=== PATIENT | female | born 1985 | race Caucasian/White ===

== ENCOUNTER 2025-02-08 14:56 | Outpatient (REF) | payer BC, SELFPAY ==
[2025-02-11 14:10] LABS: Age Gdln ACOG Testing Note (.); HPV Aptima Negative (Negative); IGP, Aptima HPV, rfx 16/18,45 Note (.)
== END 2025-02-08 14:57 | disposition home or self-care (01) ==
LOC: LAB 14:56
PROVIDERS: PCP Internal Medicine; Visit Provider Physician Assistant
DX: Z01.419 Encounter for gynecological examination (general) (routine) without abnormal findings (principal)
CPT/HCPCS: 87624; 88175

== ENCOUNTER 2025-02-21 09:00 | Outpatient (OUT) | payer BC, SELFPAY ==
--- NOTE | 2025-02-21 09:12 | MM_ITS ---
Patient Name: MOOKIE REMY MR#: [id number] : 1985 Exam Date: 02/21/2025 Ordering Doctor: DR ANDREA SKINNER RADIOLOGY REPORT PROCEDURE: MM TOMOSYNTHESIS SCREENING BI COMPARISON: None. INDICATIONS: Screening Calculator Name NCI Breast Cancer Risk Assessment Tool 5 Year Breast Cancer Risk Not Reported. Lifetime Breast Cancer Risk Not Reported. Personal Breast Cancer No Personal Ovarian Cancer No Treatments None Family Cancers None LOCATION: [facility] BREAST COMPOSITION: There are scattered areas of fibroglandular density. FINDINGS: DIAGNOSTIC CATEGORY 1--NEGATIVE. RIGHT BREAST: No significant suspicious finding. LEFT BREAST: No significant suspicious finding. RECOMMENDATIONS: ROUTINE MAMMOGRAM AND CLINICAL EVALUATION IN 12 MONTHS. PLEASE NOTE: A NORMAL MAMMOGRAM DOES NOT EXCLUDE THE POSSIBILITY OF BREAST CANCER. A CLINICALLY SUSPICIOUS PALPABLE LUMP SHOULD BE BIOPSIED. Dictated by: Stanislaw Cordero DO on 02/21/2025 at 16:10 Approved by: Stanislaw Cordero DO on 02/21/2025 at 16:12
--- OUTSIDE RECORDS SUMMARY | 2025-02-21 09:15 | XMS_ITS | CCD ---
Author Organization [facility] Care Team Providers Care Massage Operator Name Role Phone JHONATAN, MARIA DEL CARMEN Unavailable Unavailable JHONATAN, MARIA DEL CARMEN Unavailable Unavailable JHONATAN, MARIA DEL CARMEN Unavailable Unavailable CHRISTEN REGAN A Unavailable Unavailable JHONATAN, MARIA DEL CARMEN Unavailable Unavailable PERNI, TARAH C Unavailable Unavailable JHONATAN, MARIA DEL CARMEN Unavailable Unavailable JHONATAN, MARIA DEL CARMEN Unavailable Unavailable JHONATAN, MARIA DEL CARMEN Unavailable Unavailable JHONATAN, MARIA DEL CARMEN Unavailable Unavailable RADHA, OLIVIA R Unavailable Unavailable JHONATAN, MARIA DEL CARMEN Unavailable Unavailable JHONATAN, MARIA DEL CARMEN Unavailable Unavailable JHONATAN, MARIA DEL CARMEN Unavailable Unavailable JHONATAN, MARIA DEL CARMEN Unavailable Unavailable BAUGH CHARO (LINING BASTER) Unavailable Unavailable JHONATAN, MARIA DEL CARMEN Unavailable Unavailable ODOHERTY, DEX L Unavailable Unavailable JHONATAN, MARIA DEL CARMEN Unavailable Unavailable ODOHERTY, DEX L Unavailable Unavailable JHONATAN, MARIA DEL CARMEN Unavailable Unavailable Kristina LAWLER Unavailable Unavailable JHONATAN, MARIA DEL CARMEN Unavailable Unavailable JHONATAN, MARIA DEL CARMEN Unavailable Unavailable JHONATAN, MARIA DEL CARMEN Unavailable Unavailable BAUGH CHARO (LINING BASTER) Unavailable Unavailable BAUGH CHARO (LINING BASTER) Unavailable Unavailable JHONATAN, MARIA DEL CARMEN Unavailable Unavailable JHONATAN, MARIA DEL CARMEN Unavailable Unavailable JHONATAN, MARIA DEL CARMEN Unavailable Unavailable PETAR TEJADA Primary Care Unavailable ANAND MORENO Admitting Unavailable ANAND MORENO Attending Unavailable ANAND MORENO Attending Unavailable JOSAFAT BOONE Consulting Unavailable ANAND MORENO Admitting Unavailable ANAND MORENO Consulting Unavailable Petar Tejada MD Primary Care Provider ANITRA BURDEN Attending Unavailable RACHEL ROWE Attending Unavailable Problems Active Problems Problem Classification Problem Date Documented Date Episodic/Chronic Cardiac dysrhythmias (6 sources) Cardiac arrhythmia; Translations: [Cardiac arrhythmia, unspecified] Onset: 02-07-2009 12-21-2024 Chronic Mood disorders (8 sources) Mild depression; Translations: [Mild depression (CMS/HCC)] Onset: 12-21-2024 12-21-2024 Chronic Other complications of (2 sources) Obesity complicating , unspecified trimester; Translations: [Obesity complicating , first trimester] Onset: 10-05-2017 Chronic Other complications of (2 sources) Supervision of elderly multigravida, third trimester; Translations: [Supervision of elderly multigravida, first trimester] Onset: 10-08-2017 Other connective tissue disease (4 sources) Achilles tendinitis, right leg; Translations: [ACHILLES TENDINITIS RIGHT LEG] Onset: 09-19-2020 Episodic Other connective tissue disease (4 sources) Pain in right foot; Translations: [PAIN IN RIGHT FOOT] Onset: 09-12-2020 Episodic Other nutritional; endocrine; and metabolic disorders (8 sources) Body mass index 40+ - severely obese; Translations: [Morbid (severe) obesity due to excess calories] Onset: 12-21-2024 12-21-2024 Chronic Other nutritional; endocrine; and metabolic disorders (2 sources) Weight increased; Translations: [Abnormal weight gain] 12-21-2024 Episodic Other screening for suspected conditions (not mental disorders or infectious disease) (8 sources) Patient encounter status; Translations: [Encounter for screening mammogram for malignant neoplasm of breast] 12-21-2024 Episodic Other skin disorders (2 sources) Xeroderma; Translations: [Xerosis cutis] 12-21-2024 Episodic Prolonged (1 source) Post-term ; Translations: [Post-term ] Onset: 04-13-2018 Episodic Residual codes; unclassified (6 sources) Obstructive sleep apnea syndrome; Translations: [Obstructive sleep apnea (adult) (pediatric)] Onset: 02-07-2009 12-21-2024 Chronic Residual codes; unclassified (2 sources) FH: Thyroid disorder; Translations: [Family history of other endocrine, nutritional and metabolic diseases] 12-21-2024 Episodic Unclassified (2 sources) 40 weeks gestation of ; Translations: [13 weeks gestation of ] Onset: 10-08-2017 Unclassified (2 sources) Unknown / UNK(Unknown) Onset: 10-05-2017 Unclassified (1 source) Other specified postprocedural states; Translations: [Other specified postprocedural states] Onset: 10-08-2017 Unclassified (1 source) Encounter for screening for nuchal translucency; Translations: [Encounter for screening for nuchal translucency] Onset: 10-08-2017 Past or Other Problems Problem Classification Problem Date Documented Da te Episodic/Chronic Other complications of (3 sources) Supervision of with other poor reproductive or obstetric history, unspecified trimester; Translations: [Bariatric surgery status complicating , first trimester] Onset: 10-05-2017 Episodic Other gastrointestinal disorders (8 sources) History of bypass of stomach; Translations: [Bariatric surgery status] Onset: 01-24-2016 12-21-2024 Episodic Other nutritional; endocrine; and metabolic disorders (6 sources) Body mass index 30+ - obesity; Translations: [Body mass index (BMI) 39.0-39.9, adult] Onset: 01-24-2016 Resolved: 12-21-2024 12-21-2024 Chronic Unclassified (2 sources) Cancer cervix screening status 12-21-2024 Results Test Name Value Interpretation Reference Range Facility IGP,APTIMA HPV,AGE GDLNon AGE GDLN ACOG TESTING Note . [facility] Comment on above: TESTS RESULT FLAG UNITS REF RANGE LAB Clinician Provided Cytology Information Source.............Cervix;Endocervix No. of containers..01 ThinPrep Vial Age Algo ACOG Amanda... 30-65 01 FLAG LEGEND: L-Low Normal,H-High Normal,LL-Alert Low,HH-Alert High <-Panic Low,>-Panic High,A-Abnormal,AA-Critical Abnormal Performed at: 01 =[address] [phone] Mehreen Slater MD, HPV APTIMA Negative Negative [facility] Comment on above: This nucleic acid amplification test det ects fourteen high- risk HPV types (16,18,31,33,35,39,45,51,52,56,58,59,66,68) without differentiation. Performed at: =[facility], [place] [id number] Chicken And Fish Butcher: Mehreen Slater MD, Phone: [phone] Performed at: [facility] [address] [place] [id number] [employer] Butcher: Gerald Montgomery MD, Phone: [phone] IGP, APTIMA HPV, RFX 16/18,45 Note . [facility] Comment on above: TESTS RESULT FLAG UNITS REF RANGE LAB DIAGNOSIS: 02 NEGATIVE FOR INTRAEPITHELIAL LESION OR MALIGNANCY. Specimen adequacy: 02 Satisfactory for evaluation. Endocervical and/or squamous metaplastic cells (endocervical component) are present. Performed by: 02 Fernando Talley, Driver Utility Worker (ASCP) . 02 Note: Note 03 The Pap smear is a screening test designed to aid in the detection of premalignant and malignant conditions of the uterine cervix. It is not a diagnostic procedure and should not be used as the sole means of detecting cervical cancer. Both false-positive and false-negative reports do occur. Test Methodology: Note 03 This liquid based ThinPrep(R) pap test was screened with the use of an image guided system. HPV Genotype Reflex Note 02 Criteria not met, HPV Genotype not performed. FLAG LEGEND: L-Low Normal,H-High Normal,LL-Alert Low,HH-Alert High <-Panic Low,>-Panic High,A-Abnormal,AA-Critical Abnormal Performed at: 02 [facility] [id number] [place] [phone] Gerald Montgomery MD, 03 WB [facility] [address] [phone] Mehreen Slater MD, CERVIX ENDOCERVIX [facility] HCG ( test) Ql (U)o n 02-08-2025 Interpretation and review of laboratory results Normal [facility] Preg Test, Ur Negative Negative [facility] hospital Urinalysis macro (dipstick) panel (U)on 02-08-2025 Bilirubin, UA Negative Negative - 4(70) +++ mg/dL [facility] Blood, UA Negative Negative - 50 Harsh/mcL [facility] Clarity, UA Clear [facility] Color, UA Yellow [facility] Glucose, UA Negative Negative - 1999(110) ++++ mg/dL [facility] Interpretation and review of laboratory results Normal [facility] Ketones, UA Negative Negative - 160(16) ++++ mg/dL [facility] Leukocytes, UA Negative Negative - 500+++ Jayda/mcL [facility] Nitrite, UA Negative Negative - Positive [facility] pH, UA 7 5 - 9 [facility] Protein, UA Negative Negative - 1999(20) ++++ mg/dL [facility] Spec Grav, UA 1.015 1 - 1.03 [facility] Urobilinogen, UA 0.2 0.2 - 12 mg/dL Critical [facility] hospital CBC (INCLUDES DIFF/PLT)on Basophils (Bld) [#/Vol] 0.043 10*3/uL Normal 0-200 [facility] Comment on above: Performed By: #### 6399, 7600, 13744 ### # [facility] [place] [address] Assistant Chief Nursing Officer: Garrett Corea MD Basophils/100 WBC (Bld) 0.6 % Normal [facility] Comment on above: Performed By: #### 6399, 7600, 92449 ### # [facility] [place] [address] Assistant Chief Nursing Officer: Garrett Corea MD Eosinophils (Bld) [#/Vol] 0.101 10*3/uL Normal 15-500 [facility] Comment on above: Performed By: #### 6399, 7600, 40912 ### # [facility] [place] [address] Assistant Chief Nursing Officer: Garrett Corea MD Eosinophils/100 WBC (Bld) 1.4 % Normal [facility] Comment on above: Performed By: #### 6399, 7600, 45177 ### # [facility] [place] [address] Assistant Chief Nursing Officer: Garrett Corea MD Erythrocyte distribution width (RBC) [Ratio] 12.5 % Normal 11.0-15.0 [facility] Comment on above: Performed By: #### 6399, 7600, 69212 ### # [facility] [place] [address] Assistant Chief Nursing Officer: Garrett Corea MD Hematocrit (Bld) [Volume fraction] 43.2 % Normal 35.0-45.0 [facility] Comment on above: Performed By: #### 6399, 7600, 60627 ### # [facility] [place] [address] Assistant Chief Nursing Officer: Garrett Corea MD Hemoglobin (Bld) [Mass/Vol] 13.9 g/dL Normal 11.7-15.5 [facility] Comment on above: Performed By: #### 6399, 7600, 70533 ### # [facility] of [address], [address] [place] [address] Assistant Chief Nursing Officer: Garrett Croea MD Lymphocytes (Bld) [#/Vol] 2.426 10*3/uL Normal 850-3900 [facility] Comment on above: Performed By: #### 6399, 7600, 29350 ### # [facility] of [address], [address] [place] [address] Assistant Chief Nursing Officer: Garrett Corea MD Lymphocytes/100 WBC (Bld) 33.7 % Normal [facility] Comment on above: Performed By: #### 6399, 7600, 27362 ### # [facility] [place] [address] Assistant Chief Nursing Officer: Garrett Corea MD MCH (RBC) [Entitic mass] 27.5 pg Normal 27.0-33.0 [facility] Comment on above: Performed By: #### 6399, 7600, 63064 ### # [facility] [place] [address] Assistant Chief Nursing Officer: Garrett Corea MD MCHC (RBC) [Mass/Vol] 32.2 g/dL Normal 32.0-36.0 [facility] Comment on above: Result Comment: For adults, a slight dec rease in the calculated MCHC value (in the range of 30 to 32 g/dL) is most likely not clinically significant; however, it should be interpreted with caution in correlation with other red cell parameters and the patient's clinical condition. Performed By: #### 6 399, 7600, 44063 #### [facility] [place] [address] Assistant Chief Nursing Officer: Garrett Corea MD MCV (RBC) [Entitic vol] 85.5 fL Normal 80.0-100.0 [facility] Comment on above: Performed By: #### 6399, 7600, 66302 ### # [facility] of [place] [address] [place] [address] Assistant Chief Nursing Officer: Garrett Corea MD Monocytes (Bld) [#/Vol] 0.475 10*3/uL Normal 200-950 [facility] Comment on above: Performed By: #### 6399, 7600, 72200 ### # [facility] of [address], [address] [place] [address] Assistant Chief Nursing Officer: Garrett Corea MD Monocytes/100 WBC (Bld) 6.6 % Normal [facility] Comment on above: Performed By: #### 6399, 7600, 04513 ### # [facility] [place] [address] Assistant Chief Nursing Officer: Garrett Corea MD Neutrophils (Bld) [#/Vol] 4.154 10*3/uL Normal 1300-1818 [facility] Comment on above: Performed By: #### 6399, 7600, 96853 ### # [facility] of [address], [address] [place] [address] Assistant Chief Nursing Officer: Garrett Corea MD Neutrophils/100 WBC (Bld) 57.7 % Normal [facility] Comment on above: Performed By: #### 6399, 7600, 25241 ### # [facility] [place] [address] Assistant Chief Nursing Officer: Garrett Corea MD Platelet mean volume (Bld) [Entitic vol] 10.9 fL Normal 7.5-12.5 [facility] Comment on above: Performed By: #### 6399, 7600, 61383 ### # [facility] of [address], [address] [place] [address] Assistant Chief Nursing Officer: Garrett Corea MD Platelets (Bld) [#/Vol] 262 10*3/uL Normal 140-400 [facility] Comment on above: Performed By: #### 6399, 7600, 72606 ### # [facility] of [address], [address] [place] [address] Assistant Chief Nursing Officer: Garrett Corea MD RBC (Bld) [#/Vol] 5.05 10*6/uL Normal 3.80-5.10 [facility] Comment on above: Performed By: #### 6399, 7600, 57111 ### # [facility] [place] [address] Assistant Chief Nursing Officer: Garrett Corea MD WBC (Bld) [#/Vol] 7.2 10*3/uL Normal 3.8-10.8 [facility] Comment on above: Performed By: #### 6399, 7600, 21226 ### # [facility] [place] [address] Assistant Chief Nursing Officer: Garrett Corea MD [facility] 12-22-2024 Albumin [Mass/Vol] 3.9 g/dL Normal 3.6-5.1 [facility] Comment on above: Performed By: #### 6399, 7600, 71136 ### # [facility] [place] [address] Assistant Chief Nursing Officer: Garrett Corea MD Albumin/Globulin [Mass ratio] 1.3 {ratio} Normal 1.0-2.5 [facility] Comment on above: Performed By: #### 6399, 7600, 52725 ### # [facility] [place] [address] Assistant Chief Nursing Officer: Garrett Corea MD ALP [Catalytic activity/Vol] 52 U/L Normal 31-125 [facility] Comment on above: Performed By: #### 6399, 7600, 16620 ### # [facility] [place] [address] Assistant Chief Nursing Officer: Garrett Corea MD ALT [Catalytic activity/Vol] 19 U/L Normal 6-29 [facility] Comment on above: Performed By: #### 6399, 7600, 58425 ### # [facility] [place] [address] Assistant Chief Nursing Officer: Garrett Corea MD AST [Catalytic activity/Vol] 18 U/L Normal 10-30 [facility] Comment on above: Performed By: #### 6399, 7600, 77671 ### # [facility] of [address], [address] [place] [address] Assistant Chief Nursing Officer: Garrett Corea MD Bilirubin [Mass/Vol] 1.0 mg/dL Normal 0.2-1.2 [facility] Comment on above: Performed By: #### 6399, 7600, 91559 ### # [facility] of [address], [address] [place] [address] Assistant Chief Nursing Officer: Garrett Corea MD BUN/CREATININE RATIO SEE NOTE: Normal 6-22 [facility] Comment on above: Result Comment: Not Reported: BUN and Cr eatinine are within reference range. Performed By: #### 6 399, 7600, 36339 #### [facility] of [address], [address] [place] [address] Assistant Chief Nursing Officer: Garrett Corea MD Calcium [Mass/Vol] 9.0 mg/dL Normal 8.6-10.2 [facility] Comment on above: Performed By: #### 6399, 7600, 77537 ### # [facility] [place] [address] Assistant Chief Nursing Officer: Garrett Corea MD Chloride [Moles/Vol] 105 mmol/L Normal 98-110 [facility] Comment on above: Performed By: #### 6399, 7600, 73335 ### # [facility] [place] [address] Assistant Chief Nursing Officer: Garrett Corea MD CO2 [Moles/Vol] 28 mmol/L Normal 20-32 [facility] Comment on above: Performed By: #### 6399, 7600, 94972 ### # [facility] [place] [address] Assistant Chief Nursing Officer: Garrett Corea MD Creatinine [Mass/Vol] 0.79 mg/dL Normal 0.50-0.99 [facility] Comment on above: Performed By: #### 6399, 7600, 45674 ### # [facility] [place] [address] Assistant Chief Nursing Officer: Garrett Corea MD GFR/1.73 sq M.predicted among non-blacks MDRD (S/P/Bld) [Vol rate/Area] 96 mL/min/{1.73_m2} Normal > OR = 60 [facility] Comment on above: Performed By: #### 6399, 7600, 52704 ### # [facility] [place] [address] Assistant Chief Nursing Officer: Garrett Corea MD Globulin (S) [Mass/Vol] 2.9 g/dL Normal 1.9-3.7 [facility] Comment on above: Performed By: #### 6399, 7600, 42919 ### # [facility] [place] [address] Assistant Chief Nursing Officer: Garrett Corea MD Glucose [Mass/Vol] 86 mg/dL Normal 65-99 [facility] Comment on above: Result Comment: Fasting reference interval Performed By: #### 6 399, 7600, 84836 #### [facility] [place] [address] Assistant Chief Nursing Officer: Garrett oCrea MD Potassium [Moles/Vol] 4.6 mmol/L Normal 3.5-5.3 [facility] Comment on above: Performed By: #### 6399, 7600, 35100 ### # [facility] [place] [address] Assistant Chief Nursing Officer: Garrett Corea MD Protein [Mass/Vol] 6.8 g/dL Normal 6.1-8.1 [facility] Comment on above: Performed By: #### 6399, 7600, 87104 ### # [facility] [place] [address] Assistant Chief Nursing Officer: Garrett Corea MD Sodium [Moles/Vol] 139 mmol/L Normal 135-146 [facility] Comment on above: Performed By: #### 6399, 7600, 12804 ### # [facility] of [address], [address] [place] [address] Assistant Chief Nursing Officer: Garrett Corea MD Urea nitrogen [Mass/Vol] 11 mg/dL Normal 7-25 [facility] Comment on above: Performed By: #### 6399, 7600, 91735 ### # [facility] [address], [address] [place] [address] Assistant Chief Nursing Officer: Garrett Corea MD LIPID PANEL, [facility] 12-10 Cholesterol [Mass/Vol] 166 mg/dL Normal <200 [facility] Comment on above: Order Comment: FASTING:YES FASTING: YES Performed By: #### 6 399, 7600, 23571 #### [facility] [address], [address] [place] [address] Assistant Chief Nursing Officer: Garrett Corea MD Cholesterol in HDL [Mass/Vol] 50 mg/dL Normal > OR = 50 [facility] Comment on above: Order Comment: FASTING:YES FASTING: YES Performed By: #### 6 399, 7600, 09708 #### [facility] [address], [address] [place] [address] Assistant Chief Nursing Officer: Garrett Corea MD Cholesterol in LDL [Mass/Vol] 97 mg/dL Normal [facility] Comment on above: Order Comment: FASTING:YES FASTING: YES Result Comment: Refe rence range: <100 Desirable range <100 mg/dL for primary prevention; <70 mg/dL for patients with CHD or diabetic patients with > or = 2 CHD risk factors. LDL-C is now calculated using the Ta-Rima calculation, which is a validated novel method providing better accuracy than the Friedewald equation in the estimation of LDL-C. Ta LLOYD et al. ELANA. 2013;310(19): 0219-4004 (http://education.[employer].DEQ/faq/GTR664) Performed By: #### 6 399, 7600, 62333 #### [facility] [address], [address] [place] [address] Assistant Chief Nursing Officer: Garrett Corea MD Cholesterol.tota l/Cholesterol in HDL [Mass ratio] 3.3 {ratio} Normal <5.0 [facility] Comment on above: Order Comment: FASTING:YES FASTING: YES Performed By: #### 6 399, 7600, 30146 #### [facility] [place] [address] Assistant Chief Nursing Officer: Garrett Corea MD NON HDL CHOLESTEROL 116 mg/dL (calc) Normal <130 [facility] Comment on above: Order Comment: FASTING:YES FASTING: YES Result Comment: For patients with diabetes plus 1 major ASCVD risk factor, treating to a non-HDL-C goal of <100 mg/dL (LDL-C of <70 mg/dL) is considered a therapeutic option. Performed By: #### 6 399, 7600, 57509 #### [facility] [place] [address] Assistant Chief Nursing Officer: Garrett Corea MD Triglyceride [Mass/Vol] 98 mg/dL Normal <150 [facility] Comment on above: Order Comment: FASTING:YES FASTING: YES Performed By: #### 6 399, 7600, 81580 #### [facility] [address], [address] [place] [address] Assistant Chief Nursing Officer: Garrett Corea MD TSH W/REFLEX TO FT4on 2024 TSH W/REFLEX TO FT4 0.97 mIU/L Normal [facility] Comment on above: Result Comment: Reference Range > or = 20 Years 0.40-4.50 Ranges First trimester 0.26-2.66 Second trimester 0.55-2.73 Third trimester 0.43-2.91 Performed By: #### 6 399, 7600, 05956 #### [facility] [address], [address] [place] [address] Assistant Chief Nursing Officer: Garrett Corea MD XR FOOT RT MIN 3 VIEWSon XR FOOT RT MIN 3 VIEWS PROCEDURE: XR FOOT RT MIN 3 VIEWS HISTORY: Pain in right foot ; lump posterior to right heel, no known injury COMPARISON: None. FINDINGS: BONES:Prominent degenerative enthesophyte at the Achilles tendon insertion into the calcaneus. No fracture, dislocation, bone lesion. Degenerative osteophytes along the anterior articular margin of the tibial plafond. SOFT TISSUES:No visible soft tissue swelling. EFFUSION:None visible. OTHER: Negative. IMPRESSION: 1. Large posterior calcaneal degenerative enthesophyte which may account for the patient's palpable lump. Electronically authenticated by: JOSAFAT BOONE Date: 2020-09-12 11:42 Normal [facility] PROGRESSon 05-18-2018 Protein HNO ID: [id number] thor: Yeyo Livingston: (none)Author Type: PhysicianType: Progress NotesFiled: 05/18/2018 4:29 PMNote Text:This note was created using [facility] [employer].SubjectiveEchlester Leal is a 33 year old female.Review of Systems ObjectiveBP 118/76 Wt 256 lb (116.1 kg) LMP 07/17/2017 ? Yes BMI 38.92 kg/m?Physical Exam Assessment and PlanEcho Km Leal is here for her 6 weeks check following her . She deniesany post- concerns. Lochia lasted approximately 3-4 weeks. She isbreastfeeding, and denies any breast concerns. She has no abdominal orpelvic pains, bowel or bladder concerns, and denies any mood concerns.BP 118/76 Wt 256 lb (116.1 kg) LMP 07/17/2017 ? Yes BMI 38.92 kg/m?Breasts: normal per patientAbdomen: soft, non-tenderBimanual: No cervical motion tenderness, uterus small, freely mobile,non-tenderSpeculum exam: extenal genitalia normal, perineum intact, normalBartholin's glands, no vulvar lesios, no cervical lesions, normaldischargeASSESSMENT/P PARVIZ: 1. Normal post- exam 2. Contraception - IUD - risks/benefits/sideeffects of both the Paragard and Mirena reviewed. Patient is consideringthis option strongly. Written information given as well. Plans condomsuntil IUD placementNicholas Twiari MD Normal [facility] 04-15-2018 CNPN Telephone (FVFCBC) -------NESSA LEAL ([id number]) 1985 FDate Time Provider Department04/15/18 LIDYA HE (RN) FVFCBC During your visit today, we recorded the following information about you:Lidya He RN, RN 04/15/2018 11:27 AM SignedLactation Discharge Follow-Up Phone CallSpoke with Nessa regarding .(s) occur: every 2-3 hour(s)How many minutes is actively nursing at the breast per feedinminutesDoes mom hear swallowing: YesMom pumps: NoInfant takes a supplement: NoInfant has adequate urine output per day: Yes, approximately 3 wet diapers inthe last 24 hoursInfant has adequate stools per day: Yes, approximately 5 stool(s) in the last24 hoursStool descriptor: brownConnie has seen/or will see their primary care provider within the next 2 days:Evens's additional comments: NoneRecommendations:Call Services as needed.Allergies As of Date: 04/15/2018(No Known Allergies)Date Reviewed: 04/13/2018Reviewed by: Mirella Tang (Rn) JULITO Pederson - Fully AssessedReason for Visit: Breast Feeding [1541]Prescriptions as of 04/15/2018 Sig: DOCUSATE SODIUM 100 MG CAPSULE Take 1 capsule by mouth twice* BREAST PUMP Use as directed VITAMIN,CALCIUM,MINE* Take 1 tablet by mouth.Problem List As Of Date 04/15/2018 Noted Resolved Encounter for supervision of normal first pregn*INVALID FOR*07/20/2016 BMI 39.0-39.9,adult [Z68.39] INVALID FOR* More... H/O gastric bypass [Z98.84] INVALID FOR* More... Post term at 41 weeks gestation [O48.*INVALID FOR*09/25/2016 H/O macrosomia in in prior , cu*INVALID FOR* Previous gastric bypass affecting in *INVALID FOR* Obesity complicating , first trimester*INVALID FOR* Post-term , 40-42 weeks of gestation [*INVALID FOR* Elderly multigravida in third trimester [O09.52*INVALID FOR* Encounter for planned induction of labor [Z34.9*INVALID FOR* Status:Closed by LIDYA HE on 04/15/18 [facility] ANES Marcial 04-13-2018 ANES POST HNO ID: [id number] thor: Lilia Driver (Aa)Service: AnesthesiologyAuthor Type: Anesthesia AssistantType: Anesthesia PostOpFiled: 04/13/2018 2:32 PMNote Text:POST ANESTHESIA EVALUATION NOTESERVICE DATE: 04/13/2018SERVICE TIME: 1310DOB: 1985Vitals: 04/12/1815Temp: 36.8 ?C (98.2 ?F) 36.9 ?C (98.4 ?F) 36.8 ?C (98.2 ?F) 36.7 ?C (98.1?F) 04/12/18152BP: 108/60 118/58 100/51 114/69 04/12/1808Pulse: 84 77 63 64 04/12/18152Resp: 18 16 18 18 04/11/1823SpO2: 99% 99% 97% 97%Validated Vital Signs: YesPOST ANES STATUS: No apparent anesthetic complications. The patient isappropriately hydrated with stable respiratory and cardiovascular status.Patient has safe and adequate airway control. The patient has appropriatepain relief and no significant post operative nausea or vomiting. Thepatient has achieved baseline mental status.Further assessment by Anesthesia Service: NoneOther Remarks:SIGNATURE: ALEX Eugene PATIENT NAME: Nessa LealDATE: April 13, 2018 : 2:31 PM PAGER/CONTACT #: [facility] CASE MGT INIT ASSESon 2017 CASE MGT INIT PETER HNO ID: [id number]: Maricruz Grullon (Sw): Social WorkAuthor Type: Social WorkerType: Care Mgt Initial AssessmentFiled: 04/13/2018 2:21 PMNote Text:CARE MANAGEMENT: ASSESSMENT AND DISCHARGE PLANSERVICE DATE: 04/13/2018SERVICE TIME: 11:30 AMPRIMOUNTAIN VISTA MEDICAL CENTERY CARE PHYSICIAN:Petar Tejada II, MDPhone: ORZLEKCVR STATUS: InpatientMEDICAL:Patient/Re presentative Stated Goals:Home with baby when medically readyHealth Insurance: [facility], thru Medicaid- Pt was notified to add baby on to herinsurance within 30 days.Health Issues Impacting Discharge Plan: NoneLast Admission Date: Previous admit date: 07/22/2016Is this Within the Past 30 days? NoAdvance Directive:Health Literacy:1. How often do you need to have someone help you when you readinstructions, pamphlets, or other written material from your doctor orpharmacy? Never - 12. How confident are you filling out medical forms by yourself? Extremely- 1If Patient scores > 3 on either question, the following interventions wereput into place:Patient did not score > 3FUNCTIONAL AND COGNITIVE/BEHAVIORALPRIOR TO ADMISSION:Baseline Mental Status: Alert AND Oriented, Person, Place , Time andSituationFunctional Status: IndependentDoes Patient Currently Receive Any Community Services or Home Care? NoneEquipment Prior to Admission: NoneHas the Patient Been in a Halfway Facility in the Past 30 days? 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 Family reports that theydo not qualify for assistance such as WIC or [place], but they doreceive Medicaid. will provide information if they are interested inreapplying, given the increase in family size.Primary Contact: Extended Emergency Contact InformationPrimary Emergency Contact: Alka Leal: [address] [place], [place] [address]Vqtf Gzbmnriw: ParentSupportive: YesOther Important Patient Contacts: NoneCaregiver Assessment:Caregiver is ready, willing and able to meet the patient's needs asrecommended by the inter-professional team? No Caregiver NeededPatient's transition needs and plan for meeting these needs: NoneDoes the patient have an acute stroke diagnosis, or has the patient had astroke during this admission? NoMedication Adherence:I am convinced of the importance of my prescription medication: Agreecompletely - 0I worry that my prescription medication will do more harm than good to meDisagree completely - 0I feel financially burdened by my hlz-do-nllveo expenses for myprescription medication: Disagree completely - 0Patient is categorized as low risk < 2Are you interested in bedside delivery of your medications? NoFood Concerns:In the Last Month, Have You had Trouble Getting Food? No trouble gettingfoodDuring the Last Month, Have You Worried Whether Your Food Would Run OutBefore You Had Enough Money to Buy More? NoIs the Patient Psychosocially Complex? Yes, refer to Social Work.ASSESSMENT AND PLAN:Medical Needs: NonePsychosocial Needs: SW consult received, informing that per OB notes, FOBreportedly left Pt when she was 35 weeks . SW was asked to see Ptto ensure she had adequate support at home. Per OB navigator, on 03/11/18,Pt had reported that FOB reportedly left her two weeks prior, but wantedto reconcile, but she was uncertain at that time of what she wanted to do.FOB was present when this insurance underwriter sales entered the bedside; SW offered to meetwith Pt individually, however, she provided permission for him to remainpresent. She explains that they have been together for about three years(he is also the dad to her older son), informing that they all residetogether. There was no mention of their separation during ,however, Pt denied any issues in the relationship.Pt denied any past/current mental health concerns, nor did she experiencepostpartum depression after her first . SW provided educationabout PPD, including s/s to monitor for, encouraging that Pt notify her OBof any concerns. She also denies any past/current substance use or abuseor having had any involvement with children services.Upon discharge, where will your child sleep? CribFREEDOM OF CHOICE EXPLAINED:N/APOTENTIAL TRANSITION PLANSHomePWetzel County Hospital resource guideSW returned to the bedside with above resources, which were provided. FOBand Pt's mom were also present, all denying any questions or concerns atthis time.This insurance underwriter sales will follow if/as needed.SIGNATURE: GUANACO Buitrago PATIENT NAME: Nessa LealDATE: April 13, 2018 : 2:09 PM PAGER/CONTACT #: [phone] [facility] NURSING PROGon 04-13-2018 NURSING PROG HNO ID: [id number] thor: Mirella BergeronRn) Bg, RNService: NursingAuthor Type: Registered NurseType: Nursing Progress NoteFiled: 04/13/2018 11:32 AMNote Text: Nursing Progress NotePatient Name: Nessa LealMRN: [id number] Location: [id number]/[facility]-*__ Daily Note: Pt called out at this time to report passing a large clot.Upon inspection of baseball sized clot; no tissue noted. Pt deniescramping. Fundus firm at umbilicus, lochia scant. Clot weighed 10 grams. Magnus Olson MIXING TUMBLER OPERATOR notified; no orders received.This note was completed by: Mirella Pederson, JULITO [facility] NURSING PROG HNO ID: [id number] thor: Mirella BergeronRn) Bg, RNService: NursingAuthor Type: Registered NurseType: Nursing Progress NoteFiled: 04/13/2018 9:09 AMNote Text: Nursing Progress NotePatient Name: Nessa LealMRN: [id number] Location: [id number]/[facility]NOR-[facility]-*__ Daily Note: Pt is up independently in room, ambulating with a steady gait. Taking Tylenol PO PRN for c/o lower back pain with adequate pain relief.Voiding without difficulty. well on demand; ptreports infant is latching well and denies the need for supportat this time; will remain available to patients needs. No complaintsvoiced; call light within reach.This note was completed by: Mirella Pederson RN [facility] PROGRESSon 04-13-2018 PROGRESS HNO ID: [id number] thor: Angela Shetty) SaylorService: NursingAuthor Type: Nurse PractitionerType: Progress NotesFiled: 04/13/2018 1:32 PMNote Text:OBSTETRICSPOSTPARTUM PROGRESS NOTESERVICE DATE: April 13, 2018SERVICE TIME: 1315ASSESSMENT:33 year old female who is Day #1 status post Vaginal,Spontaneous Delivery delivery.Doing well.Was called to the room at 0940 to assess baseball sized clot passedfollowing breast feeding. No continued bleeding and no additional clotshave been passed since. Lochia scant.PLAN:Routine care. Encourage ambulation and IS usage. Encouragepatient to use pain meds. . Control: would like IUD atfollow up appointment, patient instructed to notify office two weeks priorto appointment for insurance approval. Discharge today. Dischargeinstructions given to patient regarding pelvic rest, bathing, stairs,walking, lifting, driving, and follow-up. Patient expressesunderstanding.SUBJ ECTIVE:Patient has no current complaints. Tolerating PO intake. Urinating withoutdifficulty. Passing flatus. Pain well controlled with current regimen.Lochia decreasing. Ambulating without difficulty.OBJECTIVE:PHYSIC AL EXAM:Heart: RR, S1, S5Xfnat: clear to auscultationAbdomen: Soft Appropriately tender to palpation Bowel sounds presentFundus firm below umbilicus Non-distendedExtremities: No calf tenderness, Edema equal bilaterally and non pittingLAST VITALS:Pulse BP Resp O2 Sat Temp Pain 64 114/69 18 97 % 36.7 ?C (98.1 ?F) 0/10HT/WT/BMI:Height Weight BMI 172.7 cm (5' 8 ) 127.5 kg (281 lb) 42.73LABSDiagnostic tests reviewed for today's visit: Most recent labsSIGNATURE: Angela Olson APRN.CNP PATIENT NAME: Nessa LealDATE: April 13, 2018 : 1:29 PM [facility] LD NOTEon 04-12-2018 LD NOTE HNO ID: [id number] thor: Christen Tang PattersonService: ObstetricsAuthor Type: PhysicianType: LANDD Delivery NoteFiled: 04/12/2018 8:44 AMNote Text:OBSTETRICSDELIVERY SUMMARY - VAGINAL DELIVERYGestational Age at Delivery: 25i2gLnfyoaq Date: 04/12/2018Service Time: 2:59 Jelly Youssef Nessa [[id number]]Labor EventsRupture Date: 04/11/18Rupture Time: 2148Rupture Type: AROMFluid Color: ClearInduction: Yes Induction Method: Misoprostol, AROM, OxytocinEpisiotomy/Lacerati on:Episiotomy: NoneLacerations: NoneEstimated Blood Loss (mL):Estimated Blood Loss (mL): 250Date and Time of :Date of : 04/12/18Time of : 0235Delivery Information:Primary Reason for Delivery : Advanced Maternal AgeAdditional Clinicial Indicator(s) for delivery: Advanced Maternal AgeDelivery type: Vaginal, Spontaneous DeliveryPresentation: VertexShoulder Dystocia Present: NoCord:Complications: NoneDelayed Cord Clamping: YesPlacenta:Delivered: 04/12/2018 2:45 AMRemoval: SpontaneousAppearance: IntactAnesthesia:Method: EpiduralMeasurements, Apgars: Weight: 9 lb 1.5 oz Weight (gms): 4125 gOne Minute : 9Five Minute : 9Code [place] Called: NoPatient presented at for IOL for AMA . Induction proceeded withmisoprostol x3, then she was started on Pitocin on hospital day #2. AROMwas performed without issue. She was kept on Pitocin, progressed tocomplete, and had an uncomplicated to a vigorous baby boy. Cord bloodand a public donation were collected. Placenta delivered spontaneouslyand intact. The patient was noted to have brisk bleeding so IV pitocinstarted per protocol and the patient was given cytotec 1000mcg per rectum.Uterus then noted to be contracted and hemostatic. The perineum wasexamined and the patient was found to has no perineal lacerations. Goodhemostasis was achieved.A digital sweep of the vaginal canal was performed by the Resident andit was ascertained that no instruments or other foreign bodies areretained within the cavity.Mother and baby are stable and bonding and skin to skin. Baby is inmother's arms.SIGNATURE: Ravi Rowe MD PATIENT NAME: Nessa LealDATE: April 12, 2018 : 2:59 AM [facility] NURSING PROGon 04-12-2018 NURSING PROG HNO ID: [id number] thor: Mirella Canela) Aimee Pedersonice: NursingAuthor Type: Registered NurseType: Nursing Progress NoteFiled: 04/12/2018 10:29 AMNote Text: Nursing Progress NotePatient Name: Nessa LealMRN: [id number] Location: [place] [address]/[address]-*__ Daily Note: Pt assisted up out of bed for the second time since delivery;gait steady. Pt assisted to ambulate into bathroom and positioned ontotoilet for comfort. Pt was able to void a large amount. Pt assisted withpericare. Clean peripad, ccp, and underwear applied. Pt assisted back tobed; safety maintained. Call light within reach.This note was completed by: Mirella Pederson RN [facility] NURSING PROG HNO ID: [id number] thor: Mora BergeronRn) Aimee Valdovinosice: (none)Author Type: Registered NurseType: Nursing Progress NoteFiled: 04/12/2018 6:59 AMNote Text: Nursing Progress NotePatient Name: Nessa LealMRN: [id number] Location: [place] [address]/[address]-*__ Daily Note:Report received from Marshall Brush RN and fundal check midline sl 1+and firm .Voided 100ml at 0500.Signal cord in reach and aware to call forassistance prior to getting out of bed.Aware of need for acchuceckmonitoring of baby and cue based/q3hr feedings.Will call RN prior tofeeding baby ,safety form signed .Nourishment taken earlier.This note was completed by: Mora Valdovinos RN [facility] PROCEDUREon 04-12-2018 PROCEDURE HNO ID: [id number] thor: Chrissy Franklin) TrimbleService: AnesthesiologyAuthor Type: StudentType: ProceduresFiled: 04/12/2018 12:46 AMNote Text: ----Attestation signed by Alexandr Aguirre at 04/12/2018 4:27 AMI performed the above procedure and discussed the management with the aboveprovider. I reviewed this note and agree with the documented findings and planof care.Alexandr Aguirre, [facility] North HospitalDepartment of Anesthesiology and Pain ManagementPager: [phone]: April 12, 2018Time: 4:26 AM -OB ANESTHESIA PROCEDURE:EPIDURAL LABOR PCEA ANALGESIAPROCEDURE DATE: 04/11/2018PROCEDURE START TIME: 2315The patient was placed in a sitting position. Timeout was performed andinformed consent confirmed (see nurse's documentation). Using steriletechnique, the patient's back was prepped and draped. Skin site wasinfiltrated with local anesthetic.Beginning Pain Score: 6 out of 10VItals:Last Pulse04/12/18 : (!) 135 Last BP04/12/18 : 108/57Needle: 17 gauge HusteadDepth of Needle: 5.5 cmDepth of Catheter at Skin: 12 cmCm of Catheter in Epidural Space: 6.5 cmInterspace: approximately L3-D6Qimtto of Attempts: 1Wet Tap Complication: NoDural Puncture Epidural: NoLoss of Resistance: SalineParasthesias: None(-) Heme Time Amt Medication Pulse B.P. CommentsCatheterTEST 2324 3 cc 1.5% Lidocaine with 1:200,000 Epinephrine 83 140/66NegativeCatheterBOLUS 2334 5 0.125% Bupivacaine and 5mcg/ml Fentanyl plus 1.25 mcg/mlEpinephrine 87 109/72 2nd Bolus at 2336--> additional 5 ccINFUSION 2340 Continous Infusion 10 mL/hr PCEA: Bolus 10 mL, Lockout 30 mins 0.0625% Bupivacaine and 2 mcg/mLFentanyl plus 1.25 mcg/ml Epinephrine 84 109/68 Patient comfortable ableto move legsPlaced By Chrissy DE OLIVEIRA/Dr. Proctor Score After Treatment: 4 out of 10See nurses' documentation for additional vitals.SIGNATURE: YENNIFER Martínez PATIENT NAME: Nessa LealDATE: April 12, 2018 : 12:36 AM PAGER/CONTACT #: [facility] PROGRESSon 04-12-2018 PROGRESS HNO ID: [id number] thor: Ravi (Steve Trejoervice: ObstetricsAuthor Type: ResidentType: Progress NotesFiled: 04/11/2018 10:15 PMNote Text:OBSTETRICSINTRAPARTUM PROGRESS NOTESERVICE DATE: April 11, 2018SERVICE TIME: 10:14 PMSubjectivePatient with no complaints.ObjectiveLAST VITALS:Pulse BP Resp O2 Sat Temp Pain 91 138/69 18 36.9 ?C (98.4 ?F) 0/10PHYSICAL EXAM:General: WD, WN, NAD, comfortableCERVICAL EXAM:Last Exam Notes: Dilation: 4.5 (04/11/182146 : Dennise Brush RN)Effacement (%): 60 (04/11/182146 : Dennise Brush RN)Station: [facility] (04/11/18 1720 : Leonie Rollins RN)Presentation: (not recorded)MEMBRANES:Status: Membrane Status: Artificial (04/11/182148 : Dennise Brush RN)Rupture Date: 04/11/18 (04/11/182148 : Dennise Brush RN)Rupture Time: 2148 (04/11/182148 : Dennise Brush RN)Amniotic Fluid Color: Clear (04/11/182148 : Dennise Brush RN)Amniotic Fluid Amount: Small (04/11/182148 : Dennise Brush RN)Additional Findings: AROM performed during this exam. Head well appliedto cervix. heart tones reassuring before and after procedure. MONITORINGBaseline: 125Variability: ModerateAccelerations: PresentDecelerations: NoneContractions:Frequency: Cat INST Interpretation: Reactive.FHR Category:FHR Category: Category ILABSDiagnostic tests reviewed for today's visit: Most recent labs and imagingresults.Assessment/P lan33 year old with history of gastric sleeve EGA:40w1d. Admitted forinduction of labor for AMA. Maternal and status reasuring..?1. Intrapartum course: Cat 1 FHT, maternal VSS - GBS - - Continue pitocin per protocol - now at 20 mU/min - Epidural PRN - AROM @2149# EFW.SIGNATURE: Ravi Rowe MD PATIENT NAME: Nessa LealDATE: April 11, 2018 : 10:13 PM PAGER/CONTACT #: [facility] PROGRESSon 04-11-2018 PROGRESS HNO ID: [id number] thor: Ravi Trejoervice: ObstetricsAuthor Type: ResidentType: Progress NotesFiled: 04/11/2018 7:58 PMNote Text:OBSTETRICSINTRAPARTUM PROGRESS NOTESERVICE DATE: April 11, 2018SERVICE TIME: 7:54 PMSubjectivePatient with no complaints.ObjectiveLAST VITALS:Pulse BP Resp O2 Sat Temp Pain (!) 50 125/57 20 36.8 ?C (98.2 ?F) 0/10PHYSICAL EXAM:General: WD, WN, NAD, comfortableCERVICAL EXAM:Last Exam Notes: Dilation: 4 (04/11/181719 : Leonie Rollins RN)Effacement (%): 60 (04/11/181719 : Leonie Rollins RN)Station: [place] (04/11/181719 : Leonie Rollins RN)Presentation: (not recorded)MEMBRANES:Status: Membrane Status: Intact (04/11/18 0944 : Leonie Rollins RN)Additional Findings: NoneFETAL MONITORINGBaseline: 130 bpm (04/11/181899 : Leonie Rollins RN)Variability: Moderate (6-25 bpm) (04/11/181899 : Leonie Galindo RN)Accelerations: Present (04/11/181899 : Leonie Rollins RN)Decelerations: Decelerations: None (04/11/181899 : Leonie Galindo RN)Contractions: Irregular (04/11/181899 : Leonie Rollins RN)Frequency: 1.5-4 (04/11/181899 : Leonie Rollins RN)NST Interpretation:FHR Category: 1 (04/11/181899 : Leonie Rollins RN)FHR Category: Category ILABSDiagnostic tests reviewed for today's visit: Most recent labs and imagingresults.Assessment/P lan33 year old with history of gastric sleeve EGA:40w1d. Admitted forinduction of labor for AMA. Maternal and status reasuring..1. Intrapartum course: Cat 1 FHT, maternal VSS - GBS - - Continue pitocin per protocol - now at 18 mU/min - Epidural PRN - AROM when head well applied. - 9# EFW.SIGNATURE: Ravi Rowe MD PATIENT NAME: Nessa LealDATE: April 11, 2018 : 7:54 PM PAGER/CONTACT #: [phone] [facility] PROGRESS HNO ID: [id number] thor: Christen TuttletersonService: ObstetricsAuthor Type: PhysicianType: Progress NotesFiled: 04/11/2018 5:24 PMNote Text:S: Feels that the ctx are getting strongerO:BP 123/70 Pulse 83 Temp 36.8 ?C (98.2 ?F) (Oral) Resp 20 Ht172.7 cm (5' 8 ) Wt 127.5 kg (281 lb) LMP 07/17/2017 BMI 42.73kg/m?Cervix- not doneToco- q2-3min (pit at 10 milliunits)FHR- 130, mod variability, +accelsA: 33yo at 40 1/7wk IOL for AMA, late term. Cat 1 tracing. GBSnegP: Continue pitocin per protocol. Will recheck cervical exam when ptbecomes more uncomfortable or if indicated before then.Christen Regan MD [facility] PROGRESS HNO ID: [id number] thor: Christen Tang PattersonService: ObstetricsAuthor Type: PhysicianType: Progress NotesFiled: 04/11/2018 2:37 PMNote Text:S: ComfortableO:BP 123/64 Pulse 65 Temp 36.8 ?C (98.2 ?F) (Oral) Resp 20 Ht172.7 cm (5' 8 ) Wt 127.5 kg (281 lb) LMP 07/17/2017 BMI 42.73kg/m?Cervix- 4/60/ballotableToco- irritabilityFHR- 130, mod variability, +accelsA: 33yo 40 1/7 IOL for AMA, late term. Cat 1 tracing. GBS negS/p misoprostol x 4 dosesMaking cervical changeP: Will start pitocin for induction of labor now.Christen Regan MD [facility] PROGRESS HNO ID: [id number] thor: Aruna Bautistavice: ObstetricsAuthor Type: PhysicianType: Progress NotesFiled: 04/11/2018 1:42 AMNote Text:OBSTETRICSINTRAPARTUM PROGRESS NOTESERVICE DATE: April 11, 2018SERVICE TIME: 1:39 AMSubjectivePatient with no complaints., No current vaginal bleeding. and No currentleaking of fluid.ObjectiveLAST VITALS:Pulse BP Resp O2 Sat Temp Pain 99 119/61 36.6 ?C (97.9 ?F) 0/10CERVICAL EXAM:Last Exam Notes: Dilation: 1.5 (04/11/18 0029 : Georgette Canela) JULITO Reynolds)Effacement (%): 50 (04/11/18 002 : Georgette Canela) JULITO Reynolds)Station: -3 (04/11/18 002 : Georgette Canela) JULITO Reynolds)Presentation: (not recorded)MEMBRANES:Status:A dditional Findings: NoneFETAL MONITORINGBaseline:Variabil ity:Accelerations:Decelerat ions:Contractions:Frequency :NST Interpretation:FHR Category:FHR Category: Category ILABSDiagnostic tests reviewed for today's visit: Most recent labsAssessment/Plan33 year old EGA:40w1d. Admitted for induction of labor for AMAat late term..Principal Problem: Encounter for planned induction of labor POA: Yes Assessment AND Plan: s/p Miso #2 @ 00:30Active Problems: H/O macrosomia in infant in prior , currently ,unspecified trimester POA: Yes Assessment AND Plan: EFW 85%ile at 33 wks Post-term , 40-42 weeks of gestation POA: Yes Assessment AND Plan: Cat I tracing, continuous EFM Elderly multigravida in third trimester POA: Yes Assessment AND Plan: proven pelvisResolved Problems: * No resolved hospital problems. *SIGNATURE: Aruna Dhillon MD PATIENT NAME: Nessa LealDATE: April 11, 2018 : 1:39 AM PAGER/CONTACT #: [facility] PROGRESS HNO ID: [id number] thor: Aruna DhillonService: ObstetricsAuthor Type: PhysicianType: Progress NotesFiled: 04/10/2018 10:37 PMNote Text:OBSTETRICSINTRAPARTUM PROGRESS NOTESERVICE DATE: April 10, 2018SERVICE TIME: 10:26 PMSubjectivePatient with no complaints., No current vaginal bleeding. and No currentleaking of fluid.ObjectiveLAST VITALS:Pulse BP Resp O2 Sat Temp Pain 99 119/61 36.6 ?C (97.9 ?F) 0/10PHYSICAL EXAM:General: WD, WN, obeseLungs: normal inspiratory effortAbdomen: soft, nontender, gravidUterus: soft, NTExtremities: tr edemaCERVICAL EXAM:Last Exam Notes: Dilation: 1 (04/10/18 1915 : Georgette (Rn) JULITO Reynolds)Effacement (%): (not recorded)Station: (not recorded)Presentation: (not recorded)MEMBRANES:Status:A dditional Findings: NoneFETAL MONITORINGBaseline:Variabil ity:Accelerations:Decelerat ions:Contractions:Frequency :NST Interpretation:FHR Category:FHR Category: Category ILABSDiagnostic tests reviewed for today's visit: Most recent labsAssessment/Plan33 year old EGA:40w0d. Admitted for induction of labor for AMAat late term..Principal Problem: Encounter for planned induction of labor POA: Yes Assessment AND Plan: s/p Miso i4Puebxw Problems: H/O macrosomia in in prior , currently ,unspecified trimester POA: Yes Assessment AND Plan: EFW 85%ile at 33 wks Post-term , 40-42 weeks of gestation POA: Yes Assessment AND Plan: Cat I tracing, continuous EFM Elderly multigravida in third trimester POA: Yes Assessment AND Plan: proven pelvisResolved Problems: * No resolved hospital problems. *SIGNATURE: Aruna Dhillon MD PATIENT NAME: Nessa LealDATE: April 10, 2018 : 10:26 PM PAGER/CONTACT #: [facility] ANEKristina PREOPon 04-10-2018 ANES PREOP HNO ID: [id number] thor: Petar Dunn) Heavenervice: AnesthesiologyAuthor Type: Nurse AnesthetistType: Anesthesia PreOpFiled: 04/10/2018 8:55 PMNote Text:OB ANESTHESIA PRE-PROCEDURE ASSESSMENTSERVICE DATE: 04/10/2018SERVICE TIME: 2029Estimated body mass index is 42.73 kg/m? as calculated from the following: Height as of this encounter: 172.7 cm (5' 8 ). Weight as of this encounter: 127.5 kg (281 lb).ASA Class: 2Adequate NPO Status: No, last solid food @ 1745 - clears at bedsideALLERGIESNo Known AllergiesAirway Assessment: MP 1; Neck ROM: Full ROM without neurologic symptoms;Airway Evaluation: No significant abnormalitiesDentition: Teeth intactSymptoms of Sleep Apnea: Probable but not formally diagnosedHematocritDate Value Ref Range Ztmdno5504/10/2018 35.8 (L) 36.0 - 46.0 % Final Platelet CountDate Value Ref Range [id number]/10/2018 199 150 - 400 k/uL Final Vitals:@MVIT ALS@Previous Anesthesia: No history of adverse event Family history ofanesthetic problems: NoneAdditional Physical Exam:Lungs: Clear to auscultation. Breath Sounds Equal: YesCardiac: Regular rhythmAdditional Pertinent Findings: NoneOBSTETRIC HISTORY:ACTIVE PROBLEM LISTBmi 39.0-39.9,AdultH/O Gastric BypassH/O Macrosomia in in Prior , Currently ,Unspecified TrimesterPrevious Gastric Bypass Affecting in First Trimester, AntepartumObesity Complicating , First TrimesterPost-Term , 40-42 Weeks of GestationElderly Multigravida in Third TrimesterEncounter for Planned Induction of LaborPrevious OB Anesthetic: EpiduralPast Obstetric History: NoneCurrent Obstetric Problems/ Important Considerations:NoneGERD: GERD well controlled with no positional symptomsAnesthetic Risks, Benefits, Alternatives, Personnel and Consent Discussed. Separate Consent Signed at this Interview: YesBlood Products: Will accept Blood/Blood ProductsANESTHETIC PLAN: Neuraxial Block for LaborPain Management Plan: Parenteral or Oral, Neuraxial Opioids and perSurgical ServiceEPIC Chart ReviewACTIVE PROBLEM LISTBmi 39.0-39.9,AdultH/O Gastric BypassH/O Macrosomia in Infant in Prior , Currently ,Unspecified TrimesterPrevious Gastric Bypass Affecting in First Trimester, AntepartumObesity Complicating , First TrimesterPost-Term , 40-42 Weeks of GestationElderly Multigravida in Third TrimesterEncounter for Planned Induction of LaborPAST MEDICAL HISTORYDiagnosis Date- Pain in joint, multiple sites backPAST SURGICAL HISTORYProcedure Laterality Date- CHOLECYSTECTOMY 2007- OVARIAN CYSTECTOMY 2007- PAST SURGICAL HISTORY OF bariatricsurgeryFAMILY HISTORYProblem Relation Age of Onset- ANEMIA [OTHER] Mother- Stroke Maternal Grandfather congestive heart failure/diabetesSocial HistorySubstance Use Topics- Smoking status: Never Smoker- Smokeless tobacco: Never Used- Alcohol use NoPrescriptions Prior to Admission:ibuprofen (MOTRIN) 600 mg tablet Take 1 tablet by mouth every 6 hours asneeded for Pain. Disp: 40 tablet Rfl: 0docusate sodium (COLACE) 100 mg capsule Take 1 capsule by mouth twicedaily. Disp: 60 capsule Rfl: 0Breast Pump Device Use as directed Disp: 1 Device Rfl: 0Prenatal Rqtkxfme-Zv-Eru-Fe-FA tab Take 1 tablet by mouth. Disp: Rfl:07/20/2016 at 0830Inpatient medications reviewed in [facility].I have interviewed and examined the patient. I have reviewed the medicalrecord , pertinent consults and/or the pre-anesthesia evaluation,pertinent labs, and test results.Significant changes in the patient's condition since the History andPhysical, not otherwise documented in primary service progress notes: NoTsouth [facility] contains updated information obtained within 48 hours ofSurgery/Procedure.SIGNATU RE: Petar Burris CRNA PATIENT NAME: Nessa LealDATE: April 10, 2018 : 8:54 PM : 1985 Normal [facility] CBCon 04-10-2018 Erythrocyte distribution width Auto Ratio (RBC) 13.4 % Normal 11.5-15.0 [facility] Comment on above: Performed By: #### CBC ####[place] [phone] Erythrocytes (RBC) 4.11 10*6/uL Normal 3.90-5.20 [facility] Comment on above: Performed By: #### CBC ####[place] [phone] Hematocrit (HCT) 35.8 % Low 36.0-46.0 [facility] Comment on above: Performed By: #### CBC ####[place] [phone] Hemoglobin mass conc (Bld) 11.8 g/dL Normal 11.5-15.5 [facility] Comment on above: Performed By: #### CBC ####[place] [phone] MCH 28.7 pG Normal 26.0-34.0 [facility] Comment on above: Performed By: #### CBC ####[place] [phone] MCHC mass conc (RBC) 33.0 g/dL Normal 30.5-36.0 [facility] Comment on above: Performed By: #### CBC ####[place] [phone] MCV 87.1 fL Normal 80.0-100.0 [facility] Comment on above: Performed By: #### CBC ####[place] [phone] Platelet mean volume (PMV) 11.5 fL Normal 9.0-12.7 [facility] Comment on above: Performed By: #### CBC ####[place] [phone] Platelets 199 10*3/uL Normal 150-400 [facility] Comment on above: Performed By: #### CBC ####[place] [phone] WBC (Leukocytes) 8.79 10*3/uL Normal 3.70-11.00 [facility] Comment on above: Performed By: #### CBC ####[facility] [id number] [place], [place] [phone] HISTORY PHYSICALon HISTORY PHYSICAL HNO ID: [id number] thor: Mich (Res) SonService: GynecologyAuthor Type: ResidentType: HANDPFiled: 04/10/2018 8:28 PMNote Text: ----Attestation signed by Aruna Dhillon at 04/10/2018 10:35 PMAttending Note:Hardy findings confirmed. Patient examined. Discussed with the resident and thepatient. Plan as outlined, induction of labor with Miso for AMA at late term.Aruna Dhillon MD -OBSTETRICSHISTORY AND PHYSICALSERVICE DATE: April 10, 2018SERVICE TIME: 8:20 PMSubjectivePatient's stated reason for arrival: its my due date and my doctor doesntlet you got past your due dateCHIEF COMPLAINT: Induction of LaborHISTORY OF THE PRESENT ILLNESS: The patient is a 33 year old female,, who is at 40w0d with an TANIA of 04/10/2018, by Ultrasound datingmethod. Patient is here for induction for AMA. Good movement.Denies vaginal bleeding., Denies contractions., Denies leaking of fluid..POST DELIVERY CONTRACEPTION:Discussed post-delivery contraception options.Patient received written information about post-delivery contraceptionoptions.Patien t does not desire post-delivery contraception.HISTORY REVIEWPAST MEDICAL HISTORYDiagnosis Date- Pain in joint, multiple sites backPAST SURGICAL HISTORYProcedure Laterality Date- CHOLECYSTECTOMY 2007- OVARIAN CYSTECTOMY 2007- PAST SURGICAL HISTORY OF bariatricsurgeryFAMILY HISTORYProblem Relation Age of Onset- ANEMIA [OTHER] Mother- Stroke Maternal Grandfather congestive heart failure/diabetesSocial History Marital status: Single Spouse name: Years of education: Number of children:Social History Main Topics Smoking status: Never Smoker Smokeless tobacco: Never Used Alcohol use: No Drug use: No Sexual activity: YesObstetric History T1 L1 SAB0 TAB0 Ectopic0 Multiple0 Live Mrxwwa2Aabk of Baby 1: JELLY LEAL-ECHO Date: 07/22/16 GA: 41w2d Delivery: Vaginal,Spontaneous Delivery Apgar1: 9 Apgar5: 9 Living: LivingName of Baby 2: Not recorded Date: Not recorded GA: Not recorded Delivery: Not recorded Apgar1: Not recorded Apgar5: Not recorded Living: Not recordedActive Non-Hospital Problems Diagnosis Date Noted- Previous gastric bypass affecting in first trimester,antepartum 10/05/2017- Obesity complicating , first trimester 10/05/2017- BMI 39.0-39.9,adult 01/24/2016 Overview Note: [facility] referral given, encouraged to attend.- H/O gastric bypass 01/24/2016 Overview Note: 2006ALLERGIESNo Known AllergiesPrior to Admission MedicationsPrescriptions Last Dose Informant Patient Reported? Taking?Breast Pump Device No NoSig: Use as directedPrenatal Jmnwonwm-Xg-Yic-Fe-FA tab Yes NoSig: Take 1 tablet by mouth.docusate sodium (COLACE) 100 mg capsule No NoSig: Take 1 capsule by mouth twice daily.ibuprofen (MOTRIN) 600 mg tablet No NoSig: Take 1 tablet by mouth every 6 hours as needed for Pain.Facility-Administered Medications: NoneREVIEW OF SYSTEMS:GENERAL: No weight loss, malaise or fevers.ROUTING EQUIPMENT TENDER: Negative for abnormal vaginal bleeding, abnormal vaginal dischargeThe remainder of the review of systems is negative.ObjectiveLAST VITALS:Pulse BP Resp O2 Sat Temp Pain 36.6 ?C (97.9 ?F) 0/10HT/WT/BMI:Height Weight BMI 172.7 cm (5' 8 ) 127.5 kg (281 lb) 42.73PHYSICAL EXAM:General: WD, WN, comfortableHEENT: NC/AT, sclera whiteLungs: clearHeart: RRAbdomen: soft, nontender, no massesUterus: soft, NTExtremities: tr edemaDTRs: deferredFHT: 130 bpm (04/10/181899 : Vaishnavi White RN) bpmSt Spec Exam: (not done)CERVICAL EXAM:Dilation: 1 (04/10/181914 : Georgette Reynolds RN) cmStation:Effacement: (thick) (04/10/181914 : Georgette Canela) JULITO Reynolds) %Position:Presentation: Pelvimetry: Pelvimetry clinically assessed as adequateFETAL MONITORING/ASSESSMENT:Basel ine: 130 bpm (04/10/181899 : Vaishnavi Canela) JULITO White)Variability: Moderate (6-25 bpm) (04/10/181899 : Vaishnavi Melo RN)Accelerations: Present (04/10/181899 : Vaishnavi Canela) JULITO White)Decelerations: Decelerations: None (04/10/181899 : Vaishnavi Canela)JULITO White)Contractions: Not present (04/10/181899 : Vaishnavi Canela) JULITO White)Frequency:NST Interpretation:FHR Category: 1 (04/10/181899 : Vaishnavi White RN)NST Comments:EFW: 9-9.5 based on last ultrasound. LABSDiagnostic tests reviewed for today's visit: Most recent labs and imagingresults.Assessment/P lan33 year old EGA:40w0d IOL for AMA. H/o x1 9lb4oz. H/o lapchole, lap ovarian cystectomy.IOL AMACx: 1Membranes: intactContractions: noneFWB: cat 1GBS negPresentation: vertex on BSUSEFW: 9-9.5Will start induction with cytotecH/o gastric bypassTaking PNV, no additional supplementsAdmit to LANDD.Continuous monitoring.Routine admission labs.Clear liquids.Epidural PRN.SIGNATURE: Mich Mckeon MD PATIENT NAME: Nessa LealDATE: April 10, 2018 : 8:20 PM PAGER/CONTACT #: [phone] [facility] Pre Delivery T+Son 8 ABO/RH(D) Positive [facility] Comment on above: Performed By: #### PREDEL ####[facility] [id number] [place], [place] [phone] Antibody Screen Negative [facility] Comment on above: Performed By: #### PREDEL ####[facility] [id number] [place] [address], [place] [phone] PROGRESSon 04-09-2018 Protein HNO ID: [id number] thor: Yeyo Livingston: (none)Author Type: PhysicianType: Progress NotesFiled: 04/09/2018 11:58 AMNote Text:This note was created using Aptiv SolutionsriJammcard.Ward Leal is a 33 year old female.Review of Systems ObjectiveBP 124/80 Ht 5' 8 (1.727 m) Wt 281 lb (127.5 kg) LMP 07/17/2017 BMI 42.73 kg/m?Physical Exam Assessment and PlanNST SUMMARYPROVIDER ASSESSMENT AND INTERPRETATIONIndications for NST: obesity, AMABaseline: 145Variability: ModerateAccelerations: Present 15 X 15Decelerations: NoneContractions: TOCO: NoneInterpretation: Category ISIGNATURE: Maria Del Carmen Jhonatan Normal [facility] PROGRESSon 04-01-2018 Protein HNO ID: [id number] thor: Yeyo Livingston: (none)Author Type: PhysicianType: Progress NotesFiled: 04/01/2018 3:25 PMNote Text:This note was created using Aptiv Solutionsriter.Ward Leal is a 33 year old female.Review of Systems ObjectiveBP 120/80 Ht 5' 8 (1.727 m) Wt 284 lb (128.8 kg) LMP 07/17/2017 BMI 43.18 kg/m?Physical Exam Assessment and PlanNST SUMMARYPROVIDER ASSESSMENT AND INTERPRETATIONIndications for NST: Obesity, AMABaseline: 140Variability: ModerateAccelerations: Present 15 X 15Decelerations: NoneContractions: TOCO: NoneInterpretation: Category ISIGNATURE: Maria Del Carmen Israel Normal [facility] PROGRESSon 03-26-2018 Protein HNO ID: [id number] thor: Charo ([facility]) EdinsoninaService: (none)Author Type: Nurse PractitionerType: Progress NotesFiled: 03/26/2018 4:37 PMNote Text:NST SUMMARYPROVIDER ASSESSMENT AND INTERPRETATIONNessa Leal is a 33 year old female, , who is at 37w6d with an EDDof 04/10/2018, by Ultrasound dating method.Indications for NST: AMA and ObesityBaseline: 140Variability: ModerateAccelerations: Present 15 X 15Decelerations: brief 10-15 second slowing noted after accelerationsContractions: TOCO: IrregularInterpretation: ReactiveSIGNATURE: Charo Baugh APRN.CNP Normal [facility] PROGRESSon 03-19-2018 Protein HNO ID: [id number] thor: Charo Baugh ([facility])Service: (none)Author Type: Nurse PractitionerType: Progress NotesFiled: 03/19/2018 5:36 PMNote Text:NST SUMMARYPROVIDER ASSESSMENT AND INTERPRETATIONNessa Leal is a 32 year old female, , who is at 36w6d with an EDDof 04/10/2018, by Ultrasound dating method.Indications for NST: ObesityBaseline: 140Variability: ModerateAccelerations: Present 15 X 15Decelerations: NoneContractions: TOCO: IrregularInterpretation: ReactiveSIGNATURE: Charo Baugh APRN.CNP Normal [facility] GROUP B STREP PCRon 03-11-20 18 GROUP B STREP PCR Negative Normal [facility] Comment on above: Performed By: #### GBPCR ####[address] [phone] PROGRESSon 03-11-2018 Protein HNO ID: [id number] thor: Emil Israel: (none)Author Type: PhysicianType: Progress NotesFiled: 03/15/2018 3:53 PMNote Text:This note was created using [employer].Ward Leal is a 32 year old female.Review of Systems ObjectiveBP 124/80 LMP 07/17/2017Physical Exam Assessment and PlanNST SUMMARYPROVIDER ASSESSMENT AND INTERPRETATIONIndications for NST: Obesity, Body mass index is 43.03 kg/m?.Baseline: 140Variability: ModerateAccelerations: Present 15 X 15Decelerations: NoneContractions: TOCO: NoneInterpretation: Category ISIGNATURE: Maria Del Carmen Jhonatan [facility] PROGRESSon 02-25-2018 Protein HNO ID: [id number] thor: Kristina Guzman: (none)Author Type: PhysicianType: Progress NotesFiled: 02/25/2018 1:48 PMNote Text:This note was created using [employer].Ward Leal is a 32 year old female.Review of Systems ObjectiveHt 5' 8 (1.727 m) Wt 282 lb (127.9 kg) LMP 07/17/2017 BMI 42.88kg/a6Umekqxum Exam Assessment and PlanMFM ultrasound completed.See Epic record for results.Pineda Lawler M.D. [facility] PROGRESSon 01-28-2018 Protein HNO ID: [id number] thor: Charo Baugh APRN.Last: (none)Author Type: Nurse PractitionerType: Progress NotesFiled: 01/28/2018 11:12 AMNote Text:Patient identified by name and date of .Nessa Leal presents today for a vaccination of Tdap.Patient denies an allergy to latex: yesPatient denies a severe (life-threatening) allergy to a previous dose ofTdap, DTP, DTaP, DT or Td vaccine. YesPatient denies history of epilepsy or neurological problems: YesPatient is afebrile and denies being moderately or severely ill: YesPatient denies history of Guillain-[place] Syndrome (a severe paralyticillness): YesTdap Adacel injection was given without incident.See immunizations for details of immunizations administered today.VIS sheet provided: YesProvider was present in office at time of injection.Charo Baugh APRN.LAVA [facility] 50g, 1hr gest. GSCRNon 12-29 Glucose mass conc 71 mg/dL Low 74-134 [facility] Comment on above: Result Comment: [place] Congress of Obs tetricians and Gynecologists (Rodgers/Harjitstan) guidelines state a gestational diabetes mellitus positive screen is made, in women not previously diagnosed with overt diabetes, when the 1 hr plasma glucose level is equal to or above 140 mg/dL. The [facility] [employer] [employer] [place] recommends a 135 mg/dL cutoff. Performed By: #### G LTGST ####[place] [address] [address], [place] [phone] CBCon 12-29-2017 Absolute nRBC <0.01 Normal <0.01 [facility] Comment on above: Performed By: #### CBC ####[place] [address] [address], [place] [phone] Erythrocyte distribution width Auto Ratio (RBC) 14.8 % Normal 11.5-15.0 [facility] Comment on above: Performed By: #### CBC ####[place] [address] [address], [place] [phone] Erythrocytes (RBC) 3.92 10*6/uL Normal 3.90-5.20 [facility] Comment on above: Performed By: #### CBC ####[facility], [place] [phone] Hematocrit (HCT) 34.9 % Low 36.0-46.0 [facility] Comment on above: Performed By: #### CBC ####[facility], [place] [phone] Hemoglobin mass conc (Bld) 11.0 g/dL Low 11.5-15.5 [facility] Comment on above: Performed By: #### CBC ####[facility], [place] [phone] MCH 28.1 pG Normal 26.0-34.0 [facility] Comment on above: Performed By: #### CBC ####[address] [place], [place] [phone] MCHC mass conc (RBC) 31.5 g/dL Normal 30.5-36.0 [facility] Comment on above: Performed By: #### CBC ####[address] [phone] MCV 89.0 fL Normal 80.0-100.0 [facility] Comment on above: Performed By: #### CBC ####[address] [phone] Platelet mean volume (PMV) 11.1 fL Normal 9.0-12.7 [facility] Comment on above: Performed By: #### CBC ####[address] [phone] Platelets 230 10*3/uL Normal 150-400 [facility] Comment on above: Performed By: #### CBC ####[address] [phone] WBC (Leukocytes) 10.50 10*3/uL Normal 3.70-11.00 [facility] Comment on above: Performed By: #### CBC ####[address] [phone] HOSPon 12-07-2017 HOSP Routine Off ice Visit (OBGYF2) -------NESSA LEAL ([id number]) 1985 [facility] Time Provider Department12/07/17 9:00 AM OLIVIA DURAN OBGYF2 During your visit today, we recorded the following information about you: Weight Height 128.1 kg 1.727 Shasta Duran MD 12/07/2017 10:10 AM SignedUltrasound reveals a hagen fetus in utero, with measurements appropriate tothe stated gestational age. The amniotic fluid volume is within normal limits. No malformations, effusions or dysrhythmias are identified.22 week 2 day hagen intrauterine gestationNo abnormalities detected in the areas visualizedThe patient was counseled as to the sonographic findings and to the potentialfor non-visualized malformations.Follow up ultrasound will be performed if requestedThe patient presents for requested ultrasound. Full report available in theANDquot;ImagingANDquot; tab in [facility] Provider: YEYO ISRAEL [[id number]]Allergies As of Date: 12/07/2017(No Known Allergies)Date Reviewed: 12/07/2017Reviewed by: Surekha Ken MA - Fully AssessedPrimary Visit Diagnosis:AMA (advanced maternal age) multigravida 35+, second trimester [O09.522] Other Visit Diagnosis:22 weeks gestation of [Z3A.22]Prescriptions as of 12/07/2017 Sig: BREAST PUMP Use as directed IBUPROFEN 600 MG TABLET Take 1 tablet by mouth every * DOCUSATE SODIUM 100 MG CAPSULE Take 1 capsule by mouth twice* VITAMIN,CALCIUM,MINE* Take 1 tablet by mouth.Problem List As Of Date 12/07/2017 Noted Resolved Encounter for supervision of normal first pregn*INVALID FOR*07/20/2016 BMI 39.0-39.9,adult [Z68.39] INVALID FOR* More... H/O gastric bypass [Z98.84] INVALID FOR* More... Post term at 41 weeks gestation [O48.*INVALID FOR*09/25/2016 H/O macrosomia in in prior , cu*INVALID FOR* Previous gastric bypass affecting in *INVALID FOR* Obesity complicating , first trimester*INVALID FOR* Status:Closed by OLIVIA DURAN MD on 12/07/17 Normal [facility] PROGRESSon 12-07-2017 Protein HNO ID: [id number] thor: Olivia Soteloice: (none)Author Type: PhysicianType: Progress NotesFiled: 12/07/2017 10:10 AMNote Text:Ultrasound reveals a hagen fetus in utero, with measurementsappropriate to the stated gestational age. The amniotic fluid volume iswithin normal limits. No malformations, effusions or dysrhythmiasare identified.22 week 2 day hagen intrauterine gestationNo abnormalities detected in the areas visualizedThe patient was counseled as to the sonographic findings and to thepotential for non-visualized malformations.Follow up ultrasound will be performed if requestedThe patient presents for requested ultrasound. Full report available inthe Imaging tab in Alexander Duran MD [facility] 12-03-2017 [facility] Routine Off ice Visit (OGFVWE) -------NESSA LEAL ([id number]) 1985 [facility] Time Provider Department12/03/17 9:30 AM YEYO ISRAEL During your visit today, we recorded the following information about you: Blood pressure Weight Height 120/70 127.9 kg 1.727 Shazia Han Ma 12/03/2017 9:27 AM SignedPatient will try and leave urine after appt.Prince Han Ma 12/03/2017 9:55 AM SignedInfluenza Vaccine Documentation:? Patient is identified by name and date of : Yes? Patient is older than 6 months of age: Yes? Patient denies a severe allergy to any vaccine component or to a previousdose of influenza vaccine: Yes? FOR EGG ALLERGY CONCERNS, REFER TO PROVIDER.? Denies allergy to gelatin, formaldehyde, thimerosol :Yes? Patient is afebrile and not moderately or severely ill: Yes? Does the patient have a history of Gullian ?[place] Syndrome (a severeparalytic illness): No? Denies bone marrow transplant prior 6 months or solid organ transplant prior3 months: Yes? VIS sheet provided: Yes? See Immunization Form in [facility] for details of immunizations administeredtoday.Referring Provider: YEYO ISRAEL [[id number]]Allergies As of Date: 12/03/2017(No Known Allergies)Date Reviewed: 12/03/2017Reviewed by: Prince Han Ma - Fully AssessedPrimary Visit Diagnosis:H/O macrosomia in infant in prior , currently , unspecified trimester [O09.299] Other Visit Diagnoses:Obesity complicating , first trimester [O99.211] Previous gastric bypass affecting in first trimester, antepartum [O99.841] Need for vaccination [Z23]Order(s):OBSTETRIC ULTRASOUND WHI [[id number]] Order #: [id number]: 1 GEST GLUC SCREEN, 1-HR, 50 GM, NON-FASTING [SQGLTGST] Order #: [id number] FUTURE CBC [SQCBC] Order #: [id number] FUTURE ADMIN OF INFLUENZA VACCINE [[id number]] Order #: [id number]: 1 INFLUENZA VACCINE QUADRIVALENT AGE 3 YRS PLUS + IM [[id number]] Order #: [id number] as of 12/03/2017 Sig: VITAMIN,CALCIUM,MINE* Take 1 tablet by mouth. IBUPROFEN 600 MG TABLET Take 1 tablet by mouth every * DOCUSATE SODIUM 100 MG CAPSULE Take 1 capsule by mouth twice* BREAST PUMP Use as directedProblem List As Of Date 12/03/2017 Noted Resolved Encounter for supervision of normal first pregn*INVALID FOR*07/20/2016 BMI 39.0-39.9,adult [Z68.39] INVALID FOR* More... H/O gastric bypass [Z98.84] INVALID FOR* More... Post term at 41 weeks gestation [O48.*INVALID FOR*09/25/2016 H/O macrosomia in infant in prior , cu*INVALID FOR* Previous gastric bypass affecting in *INVALID FOR* Obesity complicating , first trimester*INVALID FOR*Visit Notes:>> Prince Han Ma [facility] Dec 03, 2017 9:27 AM Status: SignedPatient will try and leave urine after appt.>> Prince Han Ma [facility] Dec 03, 2017 9:51 AM Status: SignedInfluenza Vaccine Documentation:? Patient is identified by name and date of : Yes? Patient is older than 6 months of age: Yes? Patient denies a severe allergy to any vaccine component or to aprevious dose of influenza vaccine: Yes? FOR EGG ALLERGY CONCERNS, REFER TO PROVIDER.? Denies allergy to gelatin, formaldehyde, thimerosol :Yes? Patient is afebrile and not moderately or severely ill: Yes? Does the patient have a history of Gullian ?[place] Syndrome (a severeparalytic illness): No? Denies bone marrow transplant prior 6 months or solid organ transplantprior 3 months: Yes? VIS sheet provided: Yes? See Immunization Form in EpicCare for details of immunizationsadministered today. Status:Closed by MARIA DEL CARMEN ISRAEL MD on 12/03/17 [facility] 10-15-2017 CNPN Telephone ([id number]) -------NESSA LEAL ([id number]) 1985 FDate Time Provider Egdpazhigf75/7/17 TARAH ZIEGLER [id number] During your visit today, we recorded the following information about you:Suzi Solis RN 10/15/2017 9:26 AM SignedCalled Nessa Leal and left message for patient on identified voicemail. Anival was informed of negative Non-Invasive Testing (NIPT) results forTrisomy 21, Trisomy 18 and Trisomy 13. Patient was also notified of the resultof no sex chromosome aneuploidy detected. Patient instructed to call the officeback if she wishes to know reported sex.Reviewed on identified voicemail that NIPT is considered screening and notdiagnostic, so this result greatly reduces, but does not eliminate the chancethat the fetus could have trisomy 21, trisomy 18, trisomy 13 or sex chromosomeaneuploidy. Nessa Leal instructed to call office if she has questions. Patientadvised to follow up with AFP neural tube defect screening (blood draw) at16-18 weeks gestation and 18-20 week detailed anatomy ultrasound.Also instructed to follow-up with Primary OB Provider.Suzi Moore RN 10/15/2017 10:20 AM AddendumPt calls back into office requesting gender of her fetus, patient aware reportstates, consistent with a male fetus. Pt states understanding.Aruna Moore RNMessage Received: Today ?? Sharlene Milian [facility] Main Nurse Triage ? Patient of Dr. Ziegler. The patient has questions about her test resultsAllergies As of Date: 10/15/2017(No Known Allergies)Date Reviewed: 10/05/2017Reviewed by: Prince Han Ma - Fully AssessedReason for Visit: NIPT Results [Other]Prescriptions as of 10/15/2017 Sig: IBUPROFEN 600 MG TABLET Take 1 tablet by mouth every * DOCUSATE SODIUM 100 MG CAPSULE Take 1 capsule by mouth twice* BREAST PUMP Use as directed VITAMIN,CALCIUM,MINE* Take 1 tablet by mouth.Problem List As Of Date 10/15/2017 Noted Resolved Encounter for supervision of normal first pregn*INVALID FOR*07/20/2016 BMI 39.0-39.9,adult [Z68.39] INVALID FOR* More... H/O gastric bypass [Z98.890] INVALID FOR* More... Post term at 41 weeks gestation [O48.*INVALID FOR*09/25/2016 H/O macrosomia in in prior , cu*INVALID FOR* Previous gastric bypass affecting in *INVALID FOR* Obesity complicating , first trimester*INVALID FOR* Status:Closed by SUZI SOLIS RN on 10/15/17 Normal [facility] 50g, 1hr gest. [facility] Glucose mass conc 78 mg/dL Normal 74-134 [facility] Comment on above: Result Comment: [place] Congress of Obs tetricians and Gynecologists (Rodgers/Hallie) guidelines state a gestational diabetes mellitus positive screen is made, in women not previously diagnosed with overt diabetes, when the 1 hr plasma glucose level is equal to or above 140 mg/dL. The [facility] [place] [facility] [place] recommends a 135 mg/dL cutoff. Performed By: #### G LTGST ####[place] [phone] Basic Metabolic Panlon 10-08 Anion gap 10 mmol/L Normal 9-18 [facility] Comment on above: Performed By: #### CBC, IRON, BMP, FERR, B12, SERFOL, RUBIGG, HBSAG, HIV12C, SYPHGX, 125VTD ####[address] [place] [phone]#### B1VIT ####[address] [phone] Calcium 8.7 mg/dL Normal 8.5-10.2 [facility] Comment on above: Performed By: #### CBC, IRON, BMP, FERR, B12, SERFOL, RUBIGG, HBSAG, HIV12C, SYPHGX, 125VTD ####[place] [phone]#### B1VIT ####[address] [phone] Chloride 102 mmol/L Normal 97-105 [facility] Comment on above: Performed By: #### CBC, IRON, BMP, FERR, B12, SERFOL, RUBIGG, HBSAG, HIV12C, SYPHGX, 125VTD ####[place] [phone]#### B1VIT ####[address] [phone] CO2 23 mmol/L Normal 22-30 [facility] Comment on above: Performed By: #### CBC, IRON, BMP, FERR, B12, SERFOL, RUBIGG, HBSAG, HIV12C, SYPHGX, 125VTD ####[address] [place] [phone]#### B1VIT ####[facility] [address] [place], [place] [phone] Creatinine 0.72 mg/dL Normal 0.58-0.96 [facility] Comment on above: Performed By: #### CBC, IRON, BMP, FERR, B12, SERFOL, RUBIGG, HBSAG, HIV12C, SYPHGX, 125VTD ####[place] [address] [address] [place], [place] [phone]#### B1VIT ####[facility] [address] [place], [place] [phone] eGFR (non-black) mL/min/{1.73_m2} Normal [facility] Comment on above: Result Comment: eGFR (Estimated GFR) Uni ts of measure: mL/min/1.73 meters squaredeGFR is derived from the reexpressed MDRD Study equation using the following parameters: serum creatinine, age, gender and race. The creatinine assay has been calibrated to be traceable to IDMS.An eGFR <60 mL/min/1.73m2 for >3 months is consistent with chronic kidney disease. Refer to KDOQI guidelines for clinical interpretation.In patients with unstable renal function, e.g. those with acute kidney injury, the eGFR may not accurately reflect actual GFR. Performed By: #### C BC, IRON, BMP, FERR, B12, SERFOL, RUBIGG, HBSAG, HIV12C, SYPHGX, 125VTD ####[facility] [place] [facility] [address] [place], [place] [phone]#### B1VIT ####[facility] [address] [place] [address] [phone] eGFR- Amer. >60 Normal [facility] Comment on above: Performed By: #### CBC, IRON, BMP, FERR, B12, SERFOL, RUBIGG, HBSAG, HIV12C, SYPHGX, 125VTD ####[facility] AveCRoseland, [place] [phone]#### B1VIT ####[facility] [address] [place], [place] [phone] Glucose mass conc 85 mg/dL Normal 74-99 [facility] Comment on above: Result Comment: The [place] Diabetes As sociation (ADA) provides guidance for cutoff values for fasting glucose and random glucose. The ADA defines fasting as no caloric intake for at least 8 hours. Fasting plasma glucose results between 100 to 125 mg/dL indicate increased risk for diabetes (prediabetes).Fasting plasma glucose results greater than or equal to 126 mg/dL meet the criteria for diagnosis of diabetes. In the absence of unequivocal hyperglycemia, results should be confirmed by repeat testing. In a patient with classic symptoms of hyperglycemia or hyperglycemic crisis, random plasma glucose results greater than or equal to 200 mg/dL meet the criteria for diagnosis of diabetes.Reference: Standards of Medical Care in Diabetes 2016, [place] Diabetes Association. Diabetes Care. 2016.39(Suppl 1). Performed By: #### C BC, IRON, BMP, FERR, B12, SERFOL, RUBIGG, HBSAG, HIV12C, SYPHGX, 125VTD ####[facility] [place] [facility] [address] [place] [phone]#### B1VIT ####[facility] [address] [place], [place] [phone] Potassium molar conc 3.5 mmol/L Low 3.7-5.1 [facility] Comment on above: Performed By: #### CBC, IRON, BMP, FERR, B12, SERFOL, RUBIGG, HBSAG, HIV12C, SYPHGX, 125VTD ####[facility] [place] [facility] [address] [place] [phone]#### B1VIT ####[facility] [address] [place], [place] [phone] Sodium 135 mmol/L Low 136-144 [facility] Comment on above: Performed By: #### CBC, IRON, BMP, FERR, B12, SERFOL, RUBIGG, HBSAG, HIV12C, SYPHGX, 125VTD ####[facility] [place] [facility] [address] [place], [place] [phone]#### B1VIT ####[address] [phone] Urea nitrogen 8 mg/dL Normal 7-21 [facility] Comment on above: Performed By: #### CBC, IRON, BMP, FERR, B12, SERFOL, RUBIGG, HBSAG, HIV12C, SYPHGX, 125VTD ####[place] [address] [address] [place], [place] [phone]#### B1VIT ####[address] [phone] CBCon 10-08-2017 Absolute nRBC <0.01 Normal <0.01 [facility] Comment on above: Performed By: #### CBC, IRON, BMP, FERR, B12, SERFOL, RUBIGG, HBSAG, HIV12C, SYPHGX, 125VTD ####[address] [place], [place] [phone]#### B1VIT ####[address] [phone] Erythrocyte distribution width Auto Ratio (RBC) 13.5 % Normal 11.5-15.0 [facility] Comment on above: Performed By: #### CBC, IRON, BMP, FERR, B12, SERFOL, RUBIGG, HBSAG, HIV12C, SYPHGX, 125VTD ####[place] [address] [address] [place], [place] [phone]#### B1VIT ####[address] [phone] Erythrocytes (RBC) 4.60 10*6/uL Normal 3.90-5.20 [facility] Comment on above: Performed By: #### CBC, IRON, BMP, FERR, B12, SERFOL, RUBIGG, HBSAG, HIV12C, SYPHGX, 125VTD ####[place] [address] [place], [place] [phone]#### B1VIT ####[address] [phone] Hematocrit (HCT) 38.3 % Normal 36.0-46.0 [facility] Comment on above: Performed By: #### CBC, IRON, BMP, FERR, B12, SERFOL, RUBIGG, HBSAG, HIV12C, SYPHGX, 125VTD ####[address] [phone]#### B1VIT ####[address] [phone] Hemoglobin mass conc (Bld) 12.3 g/dL Normal 11.5-15.5 [facility] Comment on above: Performed By: #### CBC, IRON, BMP, FERR, B12, SERFOL, RUBIGG, HBSAG, HIV12C, SYPHGX, 125VTD ####[address] [phone]#### B1VIT ####[address] [phone] MCH 26.7 pG Normal 26.0-34.0 [facility] Comment on above: Performed By: #### CBC, IRON, BMP, FERR, B12, SERFOL, RUBIGG, HBSAG, HIV12C, SYPHGX, 125VTD ####[address] [phone]#### B1VIT ####[address] [phone] MCHC mass conc (RBC) 32.1 g/dL Normal 30.5-36.0 [facility] Comment on above: Performed By: #### CBC, IRON, BMP, FERR, B12, SERFOL, RUBIGG, HBSAG, HIV12C, SYPHGX, 125VTD ####[place] [phone]#### B1VIT ####[address] [phone] MCV 83.3 fL Normal 80.0-100.0 [facility] Comment on above: Performed By: #### CBC, IRON, BMP, FERR, B12, SERFOL, RUBIGG, HBSAG, HIV12C, SYPHGX, 125VTD ####[address] [phone]#### B1VIT ####[address] [phone] Platelet mean volume (PMV) 11.2 fL Normal 9.0-12.7 [facility] Comment on above: Performed By: #### CBC, IRON, BMP, FERR, B12, SERFOL, RUBIGG, HBSAG, HIV12C, SYPHGX, 125VTD ####[address] [phone]#### B1VIT ####[address] [phone] Platelets 204 10*3/uL Normal 150-400 [facility] Comment on above: Performed By: #### CBC, IRON, BMP, FERR, B12, SERFOL, RUBIGG, HBSAG, HIV12C, SYPHGX, 125VTD ####[address] [phone]#### B1VIT ####[address] [phone] WBC (Leukocytes) 7.39 10*3/uL Normal 3.70-11.00 [facility] Comment on above: Performed By: #### CBC, IRON, BMP, FERR, B12, SERFOL, RUBIGG, HBSAG, HIV12C, SYPHGX, 125VTD ####[address] [phone]#### B1VIT ####[facility] [place], [place] [phone] Ferritinon 10-08-2017 Ferritin 35.6 ng/mL Normal 14.7-205.1 [facility] Comment on above: Performed By: #### CBC, IRON, BMP, FERR, B12, SERFOL, RUBIGG, HBSAG, HIV12C, SYPHGX, 125VTD ####[place] [address] [place], [place] [phone]#### B1VIT ####[facility] [place], [place] [phone] Folate, Serumon 10-08-2017 Folate, Serum 13.7 ng/mL Normal >4.7 [facility] Comment on above: Performed By: #### CBC, IRON, BMP, FERR, B12, SERFOL, RUBIGG, HBSAG, HIV12C, SYPHGX, 125VTD ####[address] [phone]#### B1VIT ####[address] [phone] HIV 12 Combo (Ag/Ab)on 10-08 HIV 12 Ag/Ab Non Reactive Normal Non Reactive [facility] Comment on above: Result Comment: (NOTE)HIV Information: [place] Rev. Code 3701.243(E):This information has been disclosed to you from confidential recordsprotected from disclosure by state law. You shall make no furtherdisclosure of this information without the specific, written, andinformed release of the individual to whom it pertains, or asotherwise permitted by state law. A general authorization for therelease of medical or other information is not sufficient for thepurpose of the release of HIV test results or diagnoses. Performed By: #### C BC, IRON, BMP, FERR, B12, SERFOL, RUBIGG, HBSAG, HIV12C, SYPHGX, 125VTD ####[facility] [place] [facility] [address] [phone]#### B1VIT ####[facility] [address] [phone] Hepatitis B Surf. Agon 10-08 Hepatitis B Surf. Ag Negative Normal Negative [facility] Comment on above: Performed By: #### CBC, IRON, BMP, FERR, B12, SERFOL, RUBIGG, HBSAG, HIV12C, SYPHGX, 125VTD ####[address] [phone]#### B1VIT ####[address] [phone] Iron and TIBCon 10-08-2017 Iron 49 ug/dL Normal 41-186 [facility] Comment on above: Performed By: #### CBC, IRON, BMP, FERR, B12, SERFOL, RUBIGG, HBSAG, HIV12C, SYPHGX, 125VTD ####[address] [phone]#### B1VIT ####[address] [phone] TIBC 288 ug/dL Normal 232-386 [facility] Comment on above: Performed By: #### CBC, IRON, BMP, FERR, B12, SERFOL, RUBIGG, HBSAG, HIV12C, SYPHGX, 125VTD ####[address] [phone]#### B1VIT ####[address] [phone] Transferrin Saturatn 17 % Normal 15-57 [facility] Comment on above: Performed By: #### CBC, IRON, BMP, FERR, B12, SERFOL, RUBIGG, HBSAG, HIV12C, SYPHGX, 125VTD ####[address] [phone]#### B1VIT ####[facility] [address] [place], [place] [phone] OcgopbnK78 PLUSon 10-08-2017 About the test See Notes [facility] Comment on above: Result Comment: (NOTE)The GxejfmfG06 PLU S test analyzes circulating cell-free DNAextracted from a maternal blood sample. The test isindicated for use in women with increased risk forchromosomal aneuploidy. Validation data on twin pregnanciesis limited and the ability of this test to detectaneuploidy in a triplet has not yet beenvalidated. Additional Findings N/A Normal [facility] Additnl Findings Int N/A Normal [facility] Additnl Findings Nte N/A Normal [facility] Chromosome 13 Negative Normal [facility] Chromosome 18 Negative Normal [facility] Chromosome 21 Negative Normal [facility] Chicken [employer]cher Nte See Notes Normal [facility] Comment on above: Result Comment: (NOTE) Fraction: 11 % Limitations See Notes [facility] Comment on above: Result Comment: (NOTE)DNA test results d o not provide a definitive genetic riskin all individuals. Cell-free DNA does not replace theaccuracy and precision of diagnosis with CVS oramniocentesis. These tests are not intended to identifypregnancies at risk for neural tube defects or ventral walldefects. A patient with a positive test result or presenceof an Additional Finding should be referred for geneticcounseling and offered invasive diagnosis forconfirmation of test results.[4] A negative test resultdoes not ensure an unaffected . The absence of anAdditional Finding does not indicate a negative result.While results of this testing are highly accurate, not allchromosomal abnormalities may be detected due to placental,maternal or mosaicism, or other causes. Sexchromosomal aneuploidies are not reportable for knownmultiple gestations. The health care provider isresponsible for the use of this information in themanagement of their patient. Method See Notes [facility] Comment on above: Result Comment: (NOTE)Circulating cell-f ree DNA was purified from the plasmacomponent of anti-coagulated maternal whole blood. It wasthen converted into a genomic DNA library for thedetermination of chromosome 21, 18, 13 representation andthe presence of the Y chromosome.[1] Other chromosomalmaterial, including sex chromosome (X and Y)representation, was also evaluated and will only bereported as an Additional Finding when an abnormality isdetected. MT21 Interpretation See Notes [facility] Comment on above: Result Comment: (NOTE)This specimen show ed an expected representation ofchromosome 21, 18 and 13 material. Clinical correlation issuggested. Performance See Notes [facility] Comment on above: Result Comment: (NOTE)The performance ch aracteristics of the CpwrnluB09 PLUSlaboratory-developed test (LDT) have been determined in aclinical validation study with [facility] aneu[facility]y.[1,2,3] Performance Data See Notes [facility] Comment on above: Result Comment: (NOTE)Trisomy 21 Sensiti vity: 99.1%; CI: 96.3-99.8%Trisomy 21 Specificity: 99.9%; CI: 99.6-99.9%Trisomy 18 Sensitivity: >99.9%; CI: 92.4-100.0%Trisomy 18 Specificity: 99.6%; CI: 99.2-99.8%Trisomy 13 Sensitivity: 91.7%; CI: 59.7-99.6%Trisomy 13 Specificity: 99.7%; CI: 99.3-99.9%Y Chromosome Accuracy: 99.4%; CI: 99.0-99.6% Protein See Notes [facility] Comment on above: Result Comment: (NOTE)Jorge Spence MD, PhD References See Notes [facility] Comment on above: Result Comment: (NOTE)1. Cheryl COUCH, et al. Lizzie Med. 2012;14(3):296-305.2. Cheryl COUCH et al. Lizzie Med. 2011;13(11):913-920.3. Jose Manuel WALTERS et al. Prenat Diag. 2013;33(6):591-597.4. ACOG/SMFM Joint Committee Opinion No. 545, Oct 2012. Test Note See Notes [facility] Comment on above: Result Comment: (NOTE)This test was kristal lopez and its performance characteristicsdetermined by [employer]. It has not beencleared or approved by the U.S. FDA. This test is used forclinical purposes. It should not be regarded asinvestigational or for research. This laboratory iscertified under the Clinical Laboratory ImprovementAmendments (CLIA) as qualified to perform high complexityclinical laboratory testing and accredited by the Collegeof [place] Pathologists. Y Chromosome Detected Normal [facility] Y Chromosome Interp See Notes Normal [facility] Comment on above: Result Comment: (NOTE)Consistent with a male fetus. Rubella IgG Antibodyon 10-08 Rubella IgG Ab 24.50 Index Value Normal [facility] Comment on above: Result Comment: Index values are interpr eted as follows:Negative specimens <0.90Equivocol specimens 0.90 to 0.99Positive specimens >0.99The magnitude of the measured result is not indicative of the amount of antibody present. Performed By: #### C BC, IRON, BMP, FERR, B12, SERFOL, RUBIGG, HBSAG, HIV12C, SYPHGX, 125VTD ####[facility] [place] [facility] [address] [place], [place] [phone]#### B1VIT ####[facility] [address] [place], [place] [phone] Rubella IgG Ab, Qual Positive Critically abnormal Negative [facility] Comment on above: Result Comment: Sample is considered pos itive for IgG antibodies to rubella virus.A positive result indicates previous exposure to Rubella virus or vaccination. Performed By: #### C BC, IRON, BMP, FERR, B12, SERFOL, RUBIGG, HBSAG, HIV12C, SYPHGX, 125VTD ####[facility] [place] [facility] [address] [place], [place] [phone]#### B1VIT ####[facility] [address] [place], [place] [phone] Syphilis IgG with Confon Syphilis IgG <0.2 Normal [facility] Comment on above: Result Comment: Antibody index is interp reted as follows:Non reactive SPECIMENS <=0.8Weak reactive SPECIMENS 0.9 to 5.9Reactive SPECIMENS >=6.0 Performed By: #### C BC, IRON, BMP, FERR, B12, SERFOL, RUBIGG, HBSAG, HIV12C, SYPHGX, 125VTD ####[place] [address] [address] [place] [phone]#### B1VIT ####[facility] [address] [place], [place] [phone] Syphilis IgG, Qual Nonreactive Normal Nonreactive [facility] Comment on above: Result Comment: In conjunction with this result, the immune status of the patient should be evaluated based on their clinical status, related risk factors, and other diagnostic test results. Performed By: #### C BC, IRON, BMP, FERR, B12, SERFOL, RUBIGG, HBSAG, HIV12C, SYPHGX, 125VTD ####[place] [address] [place] [phone]#### B1VIT ####[address] [phone] Type and Scr,Prenatlon 10-08 ABO/RH(D) Positive Normal [facility] Comment on above: Performed By: #### TSPN ####[address] [place] [phone] Antibody Screen Negative Normal [facility] Comment on above: Performed By: #### TSPN ####[address] [place] [phone] Urine Cultureon 10-08-2017 Urine culture, bacteria Sp. Request/Comment: - Specimen received in preservative Culture Result - No growth (<1,000 CFU/ml) Normal [facility] Comment on above: Performed By: #### URCUL ####[address] [place] [address] [address] [place] [phone] VitD, 1,25 Dihydroxyon 10-08 1,25 Dihydroxy VitD2 <4.0 Normal [facility] Comment on above: Performed By: #### CBC, IRON, BMP, FERR, B12, SERFOL, RUBIGG, HBSAG, HIV12C, SYPHGX, 125VTD ####[place] [address] [place], [place] [phone]#### B1VIT ####[facility] [address] [place] [address] [phone] 1,25 Dihydroxy VitD3 73.6 pg/mL Normal [facility] Comment on above: Performed By: #### CBC, IRON, BMP, FERR, B12, SERFOL, RUBIGG, HBSAG, HIV12C, SYPHGX, 125VTD ####[place] [address] [address] [place], [place] [phone]#### B1VIT ####[facility] [address] [phone] Vit D,1,25 DiOH 73.6 pg/mL High 15.0-60.0 [facility] Comment on above: Result Comment: This test was developed and its performance characteristics determined by [facility] [place] [facility] [place] ([facility]).It has not been cleared or approved by the FDA. [facility] is regulated under CLIA as qualified to perform high-complexity testing.This test is used for clinical purposes. It should not be regarded as investigational or for research. Performed By: #### C BC, IRON, BMP, FERR, B12, SERFOL, RUBIGG, HBSAG, HIV12C, SYPHGX, 125VTD ####[place] [address] [place], [place] [phone]#### B1VIT ####[facility] [address] [phone] Vitamin B1,Whole Bldon 10-08 Vitamin B1 Whole Bld 77 nmol/L Normal 70-180 [facility] Comment on above: Result Comment: (NOTE)INTERPRETIVE INFOR DENIS: Vitamin B1, Whole BloodThis assay measures the concentration of thiamine diphosphate(TDP), the primary active form of vitamin B1. Approximately 90percent of vitamin B1 present in whole blood is TDP. Thiamine andthiamine monophosphate, which comprise the remaining 10 percent,are not measured.Test developed and characteristics determined by [facility]. See Compliance Statement B: [email or web address] by [employer],[address] [place] [address] [email or web address], Erich Rice MD, Lab. Director Performed By: #### C BC, IRON, BMP, FERR, B12, SERFOL, RUBIGG, HBSAG, HIV12C, SYPHGX, 125VTD ####[facility] [place], [place] [phone]#### B1VIT ####[facility] [place], [place] [phone] Vitamin B12on 10-08-2017 Cobalamins (Vitamin B12) 226 pg/mL Normal 211-946 [facility] Comment on above: Performed By: #### CBC, IRON, BMP, FERR, B12, SERFOL, RUBIGG, HBSAG, HIV12C, SYPHGX, 125VTD ####[facility] [place], [place] [phone]#### B1VIT ####[facility] [place], [place] [phone] HOSPon 10-06-2017 HOSP Routine Off ice Visit (GYNMN) ------NESSA LEAL ([id number]) 1985 [facility] Time Provider Vhtvrqzcyi59/28/17 8:30 AM TARAH ZIEGLER GYNMN During your visit today, we recorded the following information about you: Weight Height 127.9 kg 1.727 Alana Ziegler MD 10/06/2017 11:06 AM SignedThe patient presents for requested ultrasound. Full report available in theANDquot;ImagingANDquot; tab in [facility] REBECA Zieglerefgeovanny Provider: YEYO ISRAEL [[id number]]Allergies As of Date: 10/06/2017(No Known Allergies)Date Reviewed: 10/05/2017Reviewed by: Prince Han Ma - Fully AssessedPrimary Visit Diagnosis:13 weeks gestation of [Z3A.13] Other Visit Diagnoses:Elderly multigravida in first trimester [O09.521] Encounter for (NT) nuchal translucency scan [Z36.82]Order(s):[id number] PLUS [SQMAT21] Order #: [id number] FUTUREPrescriptions as of 10/06/2017 Sig: IBUPROFEN 600 MG TABLET Take 1 tablet by mouth every * DOCUSATE SODIUM 100 MG CAPSULE Take 1 capsule by mouth twice* BREAST PUMP Use as directed VITAMIN,CALCIUM,MINE* Take 1 tablet by mouth.Problem List As Of Date 10/06/2017 Noted Resolved Encounter for supervision of normal first pregn*INVALID FOR*07/20/2016 BMI 39.0-39.9,adult [Z68.39] INVALID FOR* More... H/O gastric bypass [Z98.890] INVALID FOR* More... Post term at 41 weeks gestation [O48.*INVALID FOR*09/25/2016 H/O macrosomia in in prior , cu*INVALID FOR* Previous gastric bypass affecting in *INVALID FOR* Obesity complicating , first trimester*INVALID FOR* Status:Closed by TARAH ZIEGLER MD on 10/06/17 [facility] PROGRESSon 10-06-2017 Protein HNO ID: [id number] Author: Tarah Ziegler Service: (none) Author Type: Physician Type: Progress Notes Filed: 10/06/2017 11:06 AM Note Text: The patient presents for requested ultrasound. Full report available in the Imaging tab in [facility] Tarah Ziegler MD [facility] GC/Chlamydia Amplifon 2016 Chlamydia Amplif Negative Normal [facility] Comment on above: Performed By: #### GCCT ####Garcia Cl [address] [phone] GC Amplification Negative Normal [facility] Comment on above: Performed By: #### GCCT ####Garcia Cl [address] [phone] GC/Chlam Amp Source Cervix Normal [facility] Comment on above: Performed By: #### GCCT ####Garcia Cl [address] [phone] HOSPon 10-05-2017 HOSP Initial Off ice Visit (OGFVWE) -------NESSA LEAL ([id number]) 1985 FDate Time Provider Jolyolzoxq13/27/17 8:15 AM YEYO ISRAEL During your visit today, we recorded the following information about you: Blood pressure Weight Height Last Period 124/82 130.2 kg 1.727 m 07/17/17Yeyo Israel MD 10/05/2017 4:49 PM SignedThis note was created using Aptiv Solutionsriter.SubjectiveEchlester Leal is a 32 year old female.Review of SystemsObjectiveBP 124/82 Ht 5' 8ANDquot; (1.727 m) Wt 287 lb (130.2 kg) LMP 07/17/2017 BMI 43.64 kg/h3Ykvuewyf ExamAssessment and PlanINITIAL OB ASSESSMENTOB Provider: Yeyo Israel MDHPI: Nessa Leal is a 32 year old female here to establishObstetrical Care. Patient's last menstrual period was 07/17/2017. from OBDating Form. She denies any concerns today.History of abnormal pap: NoPrior treatment for cervical dysplasia: none.History of STDs: NoneTobacco use: NoCaffeine use: Yes, recommendations to limit caffeine to 200mg daily reviewed.Drug use: NoAlcohol use: NoMultivitamin with Folic acid: YesJewish or heritage: NoWould refuse blood transfusion if medically necessary: NoBMI 43.64 kg/(m2) Patient BMI over 30? Yes, [facility] MEDICAL HISTORYDiagnosis Date- Pain in joint, multiple sites backPAST SURGICAL HISTORYProcedure Laterality Date- CHOLECYSTECTOMY 2007- OVARIAN CYSTECTOMY 2007- PAST SURGICAL HISTORY OF bariatricsurgeryCurrent Outpatient Prescriptions on File Prior to Visit: Xicfhsmh-Wo-Iqn-Fe-FA tab Take 1 tablet by mouth.ibuprofen (MOTRIN) 600 mg tablet Take 1 tablet by mouth every 6 hours as neededfor Pain.docusate sodium (COLACE) 100 mg capsule Take 1 capsule by mouth twice daily.Breast Pump Device Use as directedNo current facility-administered medications on file prior to visit.Review of Systems:GENERAL: Negative for: Fever or ChillsHEENT: Negative for: Headache, Impaired Vision, Ringing in Ears, NosebleedsNECK: Negative for: Swelling, Pain, StiffnessRESPIRATORY: Negative for: Cough, Shortness of breath, WheezingGASTROINTESTINAL: Negative for: Heartburn, Constipation, Diarrhea, Blood instool, VomitingMUSCULOSKELETAL: Negative for: Muscle or joint pain, stiffness, Joint swellingNEUROLOGIC/PSYCHIAT JADE: Negative for: Weakness, Paralysis, Numbness, Tingling,Tremor, Anxiety, Depression, Memory lossSKIN: Negative for: Rash, ItchingGENITOURINARY: Negative for: vaginal itching, vaginal discharge, hematuria ordysuriaPHYSICAL EXAM: BP 124/82 Ht 5' 8ANDquot; (1.73m) Wt 287 lb (130.2kg) LMP07/17/2017 BMI 43.65 kg/(m2).GENERAL: pleasant female in no apparent distressDERMATOLOGY: Normal, without lesions, non-icteric and non-hirsuteNECK: Supple, full range of motion, no adenopathy and thyroid normalCHEST: Normal inspiratory effortBREAST: soft, non-tender, symmetric, no dominant mass, normal nipple-areolarcomplex, no lymphadenopathy, no nipple discharge and deferredABDOMEN: soft, non-tender and no massesNEURO: alert and oriented x3,exam grossly non-focalPELVIS: External genitalia normal without lesions. Perineal body intact. Novaginal or cervical lesions. Cervix closed.No adnexal masses or tenderness.Limited OB ultrasound exam: Single viable intrauterine c/w 11 weeksASSESSMENT: 32 year old at 11 wks gestational agePLAN:1) Patient oriented to practice.Discussed nutrition, folic acid supplementation, dietary guidelines, exercise,smoking, alcohol, caffeine, and drug use.Discussed routine OB labs including STD/HIV.Discussed aneuploidy screening options including serum screening and nuchaltranslucency.CALL COVERAGE reviewed in detail. Patient comfortable with male/femalecaregivers.2) h/o Macrosomia (uncomplicated vaginal delivery after 41 week IOL) - planearly GCT.3) Obesity despite h/o Gastric Bypass - nutrition discussed in detail. Planadditional labs to screen for micronutrient deficiencies. Continue PNV.The following recommendations were reviewed and given in written form as well:?Vitamin B1 (thiamine) 1.4 mg?Vitamin D 400 IU?Vitamin K 120 mcg?Zinc 11 mg?Biotin 30 mcg?Iron 65 mg plus Vitamin C?Folate 800 mcg?Calcium citrate 1200 mg?Vitamin B12: oral or sublingual 350 to 500 mcg/day; intramuscular 1000mcg/week; intranasal 500 mcg/weekStaREBECA Colberteferrleonard Provider: SELF [200]Allergies As of Date: 10/05/2017(No Known Allergies)Date Reviewed: 10/05/2017Reviewed by: Prince Han Ma - Fully AssessedReason for Visit: Amenorrhea [276]Primary Visit Diagnosis:H/O macrosomia in infant in prior , currently , unspecified trimester [O09.299] Other Visit Diagnoses:H/O gastric bypass [Z98.890] Previous gastric bypass affecting in first trimester, antepartum [O99.841] Obesity complicating , first trimester [O99.211]Order(s):CBC [SQCBC] Order #: [id number] FUTURE SYPHILIS IGG WITH CONF [SQSYPHGX] Order #: [id number] FUTURE RUBELLA IGG AB [SQRUBQNT] Order #: [id number] FUTURE HEP B SURF AG SCRN [SQHBSAG] Order #: [id number] FUTURE HIV 1,2 COMBO (AG/AB) [SQHIV12] Order #: [id number] FUTURE TYPE + SCREEN [SQTSPN] Order #: [id number] FUTURE GC/CHLAMYDIA DNA DET [SQGCCAMP] Order #: [id number] URINE CULTURE [SQURCUL] Order #: [id number] GEST GLUC SCREEN, 1-HR, 50 GM, NON-FASTING [SQGLTGST] Order #: [id number] FUTURE FERRITIN BLD [SQFERR] Order #: [id number] FUTURE IRON + TIBC [SQIRON] Order #: [id number] FUTURE VITAMIN B12 BLOOD [SQB12] Order #: [id number] FUTURE VITAMIN B1/THIAMINE, WHOLE BLD [UVT5GPI] Order #: [id number] FUTURE FOLATE SERUM [SQSERFOL] Order #: [id number] FUTURE VITAMIN D1 25-DIHYDR [PIYUI869] Order #: [id number] FUTURE BASIC METABOLIC PNL [SQBMP] Order #: [id number] FUTURE CONSULT TO SMA [[id number]] Order #: [id number]: 1 NUCHAL TRANSLUCENCY WHI [[id number]] Order #: [id number]: 1Prescriptions as of 10/05/2017 Sig: VITAMIN,CALCIUM,MINE* Take 1 tablet by mouth. IBUPROFEN 600 MG TABLET Take 1 tablet by mouth every * DOCUSATE SODIUM 100 MG CAPSULE Take 1 capsule by mouth twice* BREAST PUMP Use as directedMedication notes this encounter BREAST PUMP >> Prince Han Ma 10/05/2017 8:19 AM >> PRINCE HAN MA Oct 05, 2017 8:19 AM Not usingProblem List As Of Date 10/05/2017 Noted Resolved Encounter for supervision of normal first pregn*INVALID FOR*07/20/2016 BMI 39.0-39.9,adult [Z68.39] INVALID FOR* More... H/O gastric bypass [Z98.890] INVALID FOR* More... Post term at 41 weeks gestation [O48.*INVALID FOR*09/25/2016 H/O macrosomia in in prior , cu*INVALID FOR* Previous gastric bypass affecting in *INVALID FOR* Obesity complicating , first trimester*INVALID FOR* Status:Closed by YEYO ISRAEL MD on 10/05/17 [facility] PROGRESSon 10-05-2017 Protein HNO ID: [id number] thor: Yeyo Livingston: (none)Author Type: PhysicianType: Progress NotesFiled: 10/05/2017 4:49 PMNote Text:This note was created using Aptiv Solutionsriter.Ward Leal is a 32 year old female.Review of SystemsObjectiveBP 124/82 Ht 5' 8 (1.727 m) Wt 287 lb (130.2 kg) LMP 07/17/2017 BMI 43.64 kg/g4Olptctzf ExamAssessment and PlanINITIAL OB ASSESSMENTOB Provider: Yeyo Israel MDHPI: Nessa Leal is a 32 year old female here [facility] Obstetrical Care. Patient's last menstrual period was07/17/2017. from OB Dating Form. She denies any concerns today.History of abnormal pap: NoPrior treatment for cervical dysplasia: none.History of STDs: NoneTobacco use: NoCaffeine use: Yes, recommendations to limit caffeine to 200mg dailyreviewed.Drug use: NoAlcohol use: NoMultivitamin with Folic acid: YesJewish or heritage: NoWould refuse blood transfusion if medically necessary: NoBMI 43.64 kg/(m2) Patient BMI over 30? Yes, Consult to [facility] Be WellMoms orderedPAST MEDICAL HISTORYDiagnosis Date- Pain in joint, multiple sites backPAST SURGICAL HISTORYProcedure Laterality Date- CHOLECYSTECTOMY 2007- OVARIAN CYSTECTOMY 2007- PAST SURGICAL HISTORY OF bariatricsurgeryCurrent Outpatient Prescriptions on File Prior to Visit: Idabiglf-Sw-Ypf-Fe-FA tab Take 1 tablet by mouth.ibuprofen (MOTRIN) 600 mg tablet Take 1 tablet by mouth every 6 hours asneeded for Pain.docusate sodium (COLACE) 100 mg capsule Take 1 capsule by mouth twicedaily.Breast Pump Device Use as directedNo current facility-administered medications on file prior to visit.Review of Systems:GENERAL: Negative for: Fever or ChillsHEENT: Negative for: Headache, Impaired Vision, Ringing in Ears,NosebleedsNECK: Negative for: Swelling, Pain, StiffnessRESPIRATORY: Negative for: Cough, Shortness of breath, WheezingGASTROINTESTINAL: Negative for: Heartburn, Constipation, Diarrhea, Bloodin stool, VomitingMUSCULOSKELETAL: Negative for: Muscle or joint pain, stiffness, JointswellingNEUROLOGIC/PSY CHIATRIC: Negative for: Weakness, Paralysis, Numbness,Tingling, Tremor, Anxiety, Depression, Memory lossSKIN: Negative for: Rash, ItchingGENITOURINARY: Negative for: vaginal itching, vaginal discharge, hematuriaor dysuriaPHYSICAL EXAM: BP 124/82 Ht 5' 8 (1.73m) Wt 287 lb (130.2kg) LMP07/17/2017 BMI 43.65 kg/(m2).GENERAL: pleasant female in no apparent distressDERMATOLOGY: Normal, without lesions, non-icteric and non-hirsuteNECK: Supple, full range of motion, no adenopathy and thyroid normalCHEST: Normal inspiratory effortBREAST: soft, non-tender, symmetric, no dominant mass, normalnipple-areolar complex, no lymphadenopathy, no nipple discharge anddeferredABDOMEN: soft, non-tender and no massesNEURO: alert and oriented x3,exam grossly non-focalPELVIS: External genitalia normal without lesions. Perineal body intact.No vaginal or cervical lesions. Cervix closed.No adnexal masses ortenderness.Limited OB ultrasound exam: Single viable intrauterine c/w 11weeksASSESSMENT: 32 year old at 11 wks gestational agePLAN:1) Patient oriented to practice.Discussed nutrition, folic acid supplementation, dietary guidelines,exercise, smoking, alcohol, caffeine, and drug use.Discussed routine OB labs including STD/HIV.Discussed aneuploidy screening options including serum screening andnuchal translucency.CALL COVERAGE reviewed in detail. Patient comfortable with male/femalecaregivers.2) h/o Macrosomia (uncomplicated vaginal delivery after 41 week IOL) -plan early GCT.3) Obesity despite h/o Gastric Bypass - nutrition discussed in detail.Plan additional labs to screen for micronutrient deficiencies. ContinuePNV.The following recommendations were reviewed and given in written form aswell:?Vitamin B1 (thiamine) 1.4 mg?Vitamin D 400 IU?Vitamin K 120 mcg?Zinc 11 mg?Biotin 30 mcg?Iron 65 mg plus Vitamin C?Folate 800 mcg?Calcium citrate 1200 mg?Vitamin B12: oral or sublingual 350 to 500 mcg/day; intramuscular 1000mcg/week; intranasal 500 mcg/weekSluis Israel MD Normal [facility] HOSP 09-22-2017 [facility] Get Medical Advic e (OGFVWE) -------NESSA LEAL ([id number]) 1985 [facility] Time Provider Qlncxenrfv74/14/17 MARIA DEL CARMEN ISRAEL OGFVWE During your visit today, we recorded the following information about you:Allergies As of Date: 09/22/2017(No Known Allergies)Date Reviewed: 09/25/2016Reviewed by: Prince Han Ma - Fully AssessedPrescriptions as of 09/22/2017 Sig: IBUPROFEN 600 MG TABLET Take 1 tablet by mouth every * DOCUSATE SODIUM 100 MG CAPSULE Take 1 capsule by mouth twice* BREAST PUMP Use as directed VITAMIN,CALCIUM,MINE* Take 1 tablet by mouth.Problem List As Of Date 09/22/2017 Noted Resolved Encounter for supervision of normal first pregn*INVALID FOR*07/20/2016 BMI 39.0-39.9,adult [Z68.39] INVALID FOR* More... H/O gastric bypass [Z98.890] INVALID FOR* More... Post term at 41 weeks gestation [O48.*INVALID FOR*09/25/2016Encounter Number: [id number] Status:Closed by JUSTIN STERN on 09/22/17 Normal [facility] Vital Signs Date Time Vital Sign Value Performing Clinician Maggie hernadez 02-08-2025 10:32-0400 Body mass index (BMI) [Ratio] 43.79 kg/m2 Rachel Jae PA Work Phone: [facility] 02-08-2025 10:32-0400 Body weight 130.64 kg Rachel Beatrice PA Work Phone: [facility] 02-08-2025 10:32-0400 Diastolic blood pressure 70 mm[Hg] Rachel Jae PA Work Phone: [facility] 02-08-2025 10:32-0400 Systolic blood pressure 120 mm[Hg] Rachel Jae PA Work Phone: [facility] 12-21-2024 10:40-0500 Body height 172.7 cm Anitra Hemmer PA Work Phone: [facility] 12-21-2024 10:40-0500 Body mass index (BMI) [Ratio] 44.28 kg/m2 Anitra Hemmer PA Work Phone: [facility] 12-21-2024 10:40-0500 Body weight 132.09 kg Anitra Hemmer PA Work Phone: [facility] 12-21-2024 10:40-0500 Diastolic blood pressure 76 mm[Hg] Anitra Hemmer PA Work Phone: [facility] 12-21-2024 10:40-0500 Heart rate 68 /min Anitra Hemmer PA Work Phone: [facility] 12-21-2024 10:40-0500 Respiratory rate 16 /min Anitra Hemmer PA Work Phone: [facility] 12-21-2024 10:40-0500 SaO2% (BldA) [Mass fraction] 98 % Anitra Hemmer PA Work Phone: [facility] 12-21-2024 10:40-0500 Systolic blood pressure 124 mm[Hg] Anitra Hemmer PA Work Phone: [facility] Healthcare Encounters Encounter Date Encounter Type Care Provider Facility Start: 02-08-2025 End: 02-08-2025 Bamboo flowsheet Rachel SKINNER Work Phone: [facility] Start: 02-08-2025 End: 02-11-2025 Bamboo flowsheet Rachel Rowe PA Work Phone: [facility] Start: 02-08-2025 End: 02-11-2025 Clinisync Result Encounter Generic External Data Provider [facility] External Department Unsolicited Start: 02-08-2025 End: 02-08-2025 Patient encounter procedure Rachel Rowe PA Work Phone: [facility] Work Phone: Start: 02-08-2025 End: 02-08-2025 Periodic preventive med est patient 40-64yrs Rachel SKINNER Work Phone: [facility] Comment on above: Well woman exam with routine gynecological exam; Breast cancer screening by mammogram Start: 02-08-2025 End: 02-08-2025 ambulatory RACHEL ROWE Not Available Start: 12-21-2024 End: 12-21-2024 Bamboo flowsheet Anitra Burden PA Work Phone: [facility] Start: 12-21-2024 End: 12-21-2024 Bamboo flowsheet Anitra Burden PA Work Phone: [facility] Start: 12-21-2024 End: 12-21-2024 Office outpatient new 30 minutes Anitra SKINNER Work Phone: [facility] Comment on above: Dry skin (Primary Dx ); Family history of thyroid disease; Encounter for screening mammogram for malignant neoplasm of breast; Screening for malignant neoplasm of cervix; H/O gastric bypass; Morbid obesity with BMI of 40.0-44.9, adult (CMS/HCC); Weight gain; Screening for lipid disorders; Mild depression (CMS/HCC) Start: 12-21-2024 End: 12-21-2024 ambulatory ANITRA BURDEN Not Available Start: 09-19-2020 End: 11-05-2020 Patient encounter procedure PETAR TEAJDA Facility:[facility] Start: 09-12-2020 End: 09-13-2020 Patient encounter procedure [facility] Facility: Start: 05-18-2018 End: 05-20-2018 Patient encounter MARIA DEL CARMEN [facility] Start: 04-10-2018 End: 04-13-2018 Evaluation and management of inpatient MARIA DEL CARMEN [facility] Start: 04-09-2018 End: 04-29-2018 Patient encounter MARIA DEL CARMEN [facility] Start: 04-01-2018 End: 04-30-2018 Patient encounter MARIA DEL CARMEN [facility] Start: 03-26-2018 End: 03-30-2018 Patient encounter CHARO (LINING BASTER) [facility] Start: 03-19-2018 End: 03-24-2018 Patient encounter CHARO (ALVA) [facility] Start: 03-11-2018 End: 03-16-2018 Patient encounter MARIA DEL CARMEN [facility] Start: 02-25-2018 End: 02-26-2018 Patient encounter Kristina LAWLER [facility] Start: 02-23-2018 End: 02-26-2018 [facility] Start: 02-12-2018 End: 02-15-2018 [facility] Start: 01-28-2018 End: 02-01-2018 Patient encounter CHARO (ALVA) [facility] Start: 01-16-2018 Ambulatory [facility] Start: 12-29-2017 End: 12-29-2017 Patient encounter MARIA DEL CARMEN [facility] Start: 12-25-2017 [facility] Start: 12-07-2017 End: 12-08-2017 Patient encounter OLIVIA DURAN [facility] Start: 12-03-2017 End: 12-08-2017 Patient encounter MARIA DEL CARMEN [facility] Start: 10-08-2017 Patient encounter MARIA DEL CARMEN [facility] Start: 10-06-2017 End: 10-10-2017 Patient encounter TARAH ZIEGLER [facility] Start: 10-05-2017 End: 10-06-2017 Patient encounter [facility] DEL CARMEN [facility] Procedures Date Procedure Procedure Detail Performing Clinician Start: 02-08-2025 Urnls dip stick/tabl et rgnt non-auto w/o micrscp Rachel SKINNER Work Phone: Start: 02-08-2025 IGP,APTIMA HPV,AGE GDLN Rachel SKINNER Work Phone: Start: 12-25-2015 Microscopic observat ion [Identifier] in Cervix by Cyto stain Anitra SKINNER Work Phone: Plan of Treatment Date Care Activity Detail Author Start: 07-10-2025 Influenza vaccination Influenz a Vaccine (Season Ended) [facility] Start: 03-22-2025 End: 03-22-2025 Patient encounter procedure 03/22/2025 9:00 AM EDT Office Visit [facility] [address] [facility] [address] [place] [phone] Anitra Burden PA [address] [place] [address] [facility] Start: 02-08-2025 End: 04-10-2026 MG Breast - bilateral Screening Bilateral screening mammogram Imaging Routine Breast cancer screening by mammogram Expected: 02/08/2025 (Approximate), Expires: 04/10/2026 [facility] Work Phone: Comment on above: Expected: 02/08/2025 (Approximate), Expires: 04/10/2026 Start: 02-08-2025 End: 02-08-2025 Patient encounter procedure 02/08/2025 11:00 AM EDT Office Visit [facility] [address] [place] [address] Rachel Rowe PA [address] [place] [address] Arrived [facility] Comment on above: Arrived Start: 12-21-2024 End: 12-21-2025 CBC W Auto Differential panel - Blood CBC and differential Lab Routine Dry skin H/O gastric bypass Morbid obesity with BMI of 40.0-44.9, adult ([facility]) Weight gain Expected: 12/21/2024 (Approximate), Expires: 12/21/2025 [facility] Comment on above: Expected: 12/21/2024 (Approximate), Expires: 12/21/2025 Start: 12-21-2024 End: 12-21-2025 Comprehensive metabolic 2000 panel - Serum or Plasma Comprehensive metabolic panel Lab Routine H/O gastric bypass Morbid obesity with BMI of 40.0-44.9, adult ([facility]) Weight gain Expected: 12/21/2024 (Approximate), Expires: 12/21/2025 [facility] Comment on above: Expected: 12/21/2024 (Approximate), Expires: 12/21/2025 Start: 12-21-2024 End: 02-18-2026 DBT Breast - bilateral screening Bilateral screening mammogram with tomosynthesis Imaging Routine Encounter for screening mammogram for malignant neoplasm of breast Expected: 12/21/2024, Expires: 02/18/2026 [facility] Work Phone: Comment on above: Expected: 12/21/2024 , Expires: 02/18/2026 Start: 12-21-2024 End: 12-21-2025 Lipid 1996 panel - Serum or Plasma Lipid panel Lab Routine H/O gastric bypass Morbid obesity with BMI of 40.0-44.9, adult ([facility]) Screening for lipid disorders Expected: 12/21/2024 (Approximate), Expires: 12/21/2025 [facility] Comment on above: Expected: 12/21/2024 (Approximate), Expires: 12/21/2025 Start: 12-21-2024 End: 12-21-2025 TSH W/REFLEX TO FT4 TSH W/REFLEX TO FT4 Lab Routine Dry skin Family history of thyroid disease Morbid obesity with BMI of 40.0-44.9, adult ([facility]) Weight gain Expected: 12/21/2024 (Approximate), Expires: 12/21/2025 [facility] Comment on above: Expected: 12/21/2024 (Approximate), Expires: 12/21/2025 Start: 12-21-2024 End: 12-21-2024 Patient encounter procedure 12/21/2024 10:30 AM EST Office Visit [facility] [address] [facility] [address] [place] [address] Anitra Burden PA [address] [facility] [address] [place] [address] Arrived [facility] Comment on above: Arrived Start: 07-10-2024 Influenza vaccination Influenza Vacc ine (#1) [facility] Start: 2023 Screening for malign ant neoplasm of breast Mammogram [facility] Start: 12-25-2020 Screening for malign ant neoplasm of cervix [facility] Start: 12-25-2018 Screening for malign ant neoplasm of cervix [facility] Start: 2013 Screening for malign ant neoplasm of cervix HPV/Cotest [facility] THIN PREP TIS PAP AN D HR HPV DNA THIN PREP TIS PAP AND HR HPV DNA Pathology and Cytology Routine Well woman exam with routine gynecological exam Ordered: 02/08/2025 [facility] Comment on above: Ordered: 02/08/2025 Immunizations Immunization Date Immunization Notes Care Provider Fa cility 01-28-2018 tetanus toxoid, redu norma diphtheria toxoid, and acellular pertussis vaccine, adsorbed Anitra SKINNER Work Phone: [facility] 12-03-2017 influenza, injectabl e, quadrivalent, contains preservative Anitra SKINNER Work Phone: [facility] 12-03-2017 influenza virus vacc ine, unspecified formulation Anitra SKINNER Work Phone: [facility] 05-15-2016 tetanus toxoid, redu norma diphtheria toxoid, and acellular pertussis vaccine, adsorbed Anitra SKINNER Work Phone: [facility] 01-28-2002 hepatitis B vaccine, pediatric or pediatric/adolescent dosage Anitra SKINNER Work Phone: [facility] 07-19-2001 hepatitis B vaccine, pediatric or pediatric/adolescent dosage Anitra SKINNER Work Phone: [facility] 06-30-2001 meningococcal polysaccharide vaccine (MPSV4) Anitra SKINNER Work Phone: [facility] 06-09-2001 hepatitis B vaccine, pediatric or pediatric/adolescent dosage Anitra Hemmer PA Work Phone: [facility] 12-19-1994 measles, mumps and r ubella virus vaccine Anitra Hemmer PA Work Phone: [facility] 06-05-1986 haemophilus influenz ae type b vaccine, conjugate unspecified formulation Anitra Hemmer PA Work Phone: [facility] 02-10-1985 diphtheria, tetanus toxoids and pertussis vaccine Anitra Hemmer PA Work Phone: [facility] 02-10-1985 trivalent poliovirus vaccine, live, oral Anitra Hemmer PA Work Phone: [facility] 09-16-1984 measles, mumps and r ubella virus vaccine Anitra Hemmer PA Work Phone: [facility] 1985 diphtheria, tetanus toxoids and pertussis vaccine Anitra Hemmer PA Work Phone: [facility] 1985 trivalent poliovirus vaccine, live, oral Anitra Hemmer PA Work Phone: [facility] 1985 diphtheria, tetanus toxoids and pertussis vaccine Anitra Hemmer PA Work Phone: [facility] 1985 trivalent poliovirus vaccine, live, oral Anitra Hemmer PA Work Phone: [facility] 1983 diphtheria, tetanus toxoids and pertussis vaccine Anitra Hemmer PA Work Phone: [facility] 1983 trivalent poliovirus vaccine, live, oral Anitra Hemmer PA Work Phone: [facility] Payers Date Payer Category Payer [facility] 1.2.8 [id number] 2023 Unknown [id number] 1985 Unknown [id number] 1983 Unknown [id number] 2.16.84 [id number] 1983 Unknown [id number] 2.16.84 [id number] 1983 Unknown [id number] 2.16.84 [id number] 1961 Private Health Insurance [id number] Social History Date Type Detail Facility Tobacco smoking stat [facility] Tobacco smoking consumption unknown [facility] Start: 1985 Sex assigned at Not on file [facility] Start: 12-21-2024 Gender identity Not on file [facility] Start: 12-21-2024 Tobacco smoking stat [facility] Ex-smoker [facility] History of tobacco use Current smoker [facility] History of tobacco use Cigarette Smoker [facility] Start: 12-21-2024 Tobacco use and exposure Smokeless t obacco non-user [facility] Start: 12-21-2024 End: 02-08-2025 Alcoholic beverage intake Current drinker of alcohol (finding) [facility] Start: 12-21-2024 History of Social function [facility] How often to you hav e a drink containing alcohol? Monthly or less [facility] How many standard dr inks containing alcohol do you have on a typical day? 1 or 2 [facility] How often do you hav e 6 or more drinks on 1 occasion? Never [facility] History of Present illness Narrative 12-21-2024 SUSANNE Almaguer - 12/21/2024 10:30 AM EST Note Date & Type Note Facility 12-21-2024 History of Presen t illness Narrative Images from the original note were not included. Subjective Patient ID: Nessa Leal is a 39 y.o. female who presents for reestablish care. Nessa is present today to re-establish care and to have her thyroid checked. Admits brittle hair, her sense of smell is off, hard time losing weight, dry skin. This started in September. She is fasting for bloodwork today. She also thinks her mother has had her thyroid removed. Drinks iced coffee for breakfast, milk and 2 tablespoons of sugar. Sometimes gets a breakfast wrap from [employer]. Lunch is salads or Healthy Choice meal. Dinner varies, eats whatever the kids have left over, like chicken nuggets. Snacks consist of chips. Does not eat after 7 pm. Drinks 64 ounces of water a day. Occasionally drinks a Sprite, like once a month. Does note exercise. In the Summer she does go for walks. No current outpatient medications on file prior to visit. No current facility-administered medications on file prior to visit. I have reviewed and reconciled the history and medication list with the patient today. No Known Allergies Social History Tobacco Use Smoking status: Former Types: Cigarettes Smokeless tobacco: Never Vaping Use Vaping status: Never Used Substance Use Topics Alcohol use: Yes Drug use: Never Family History Problem Relation Name Age of Onset Heart murmur Mother Thyroid disease Mother Past Medical History: Diagnosis Date Obesity ALEYDA (obstructive sleep apnea) Past Surgical History: Procedure Laterality Date CHOLECYSTECTOMY GASTRIC BYPASS 2004, Gastric Sleeve WISDOM TOOTH EXTRACTION Visit Vitals BP 124/76 Pulse 68 Resp 16 Ht 5' 8 Wt 291 lb 3.2 oz SpO2 98% BMI 44.28 kg/m Smoking Status Former BSA 2.52 m Review of Systems Constitutional: Positive for unexpected weight change (Weight gain). Negative for chills, fatigue and fever. HENT: Altered sense of smell Respiratory: Negative for cough, shortness of breath and wheezing. Cardiovascular: Negative for chest pain, palpitations and leg swelling. Gastrointestinal: Negative for abdominal pain, constipation, diarrhea, nausea and vomiting. Skin: Negative for rash. Psychiatric/Behavioral: Positive for dysphoric mood (Mild). Endocrine: Brittle hair, dry skin Objective Physical Exam Constitutional: General: She is not in acute distress. Appearance: She is well-developed. She is obese. HENT: Head: Normocephalic and atraumatic. Eyes: General: No scleral icterus. Conjunctiva/sclera: Conjunctivae normal. Cardiovascular: Rate and Rhythm: Normal rate and regular rhythm. Heart sounds: Normal heart sounds. No murmur heard. Pulmonary: Effort: Pulmonary effort is normal. No respiratory distress. Breath sounds: Normal breath sounds. No wheezing, rhonchi or rales. Skin: General: Skin is warm and dry. Neurological: General: No focal deficit present. Mental Status: She is alert and oriented to person, place, and time. Psychiatric: Mood and Affect: Mood normal. Behavior: Behavior normal. Assessment/Plan Diagnoses and all orders for this visit: Dry skin - CBC and differential; Future - TSH W/REFLEX TO FT4; Future Will check thyroid function with today's fasting labs. Family history of thyroid disease - TSH W/REFLEX TO FT4; Future Will check thyroid function with today's fasting labs. Encounter for screening mammogram for malignant neoplasm of breast - Bilateral screening mammogram with tomosynthesis; Future Provided patient with an order for an updated Mammogram. If results are negative/normal, will plan to continue with routine yearly screenings. Screening for malignant neoplasm of cervix - Ambulatory referral to Gynecology; Future Provided pt with referral to [facility]IPMENT [facility] to have Updated PAP smear. H/O gastric bypass - CBC and differential; Future - Comprehensive metabolic panel; Future - Lipid panel; Future Will obtain fasting labs for further evaluation at this time. Morbid obesity with BMI of 40.0-44.9, adult (CMS/HCC) - CBC and differential; Future - Comprehensive metabolic panel; Future - Lipid panel; Future - TSH W/REFLEX TO FT4; Future Lengthy discussion regarding weight loss with the patient today. Cardiovascular benefits of weight loss reviewed. Encouraged portion control, decrease simple sugars and carbohydrates, and gradually increase activity level. Reviewed importance of overall lifestyle modifications, gradually improving one aspect at a time, to maintain weight loss terminal system operator. Goal will be gradual steady weight loss. Can address possibly using medication to help with weight loss in the future if needed, once lifestyle modifications have started. Weight gain - CBC and differential; Future - Comprehensive metabolic panel; Future - TSH W/REFLEX TO FT4; Future Will r/o thyroid disease as a contributing factor. Screening for lipid disorders - Lipid panel; Future Will check cholesterol with today's labs. Mild depression (CMS/HCC) Admits to mild depressive symptoms, in part due to her weight. Advised how mood can improve with increasing activity level. Will monitor. Can consider medication in the future if needed. Follow up in about 3 months (around 03/20/2025) for Recheck. documented in this encounter [facility] Evaluation note Note Date & Type Note Facility Evaluation note Diagnosis Dry skin- Primary Other symptoms involving skin and integumentary tissues Family history of thyroid disease Family history of other endocrine and metabolic diseases Encounter for screening mammogram for malignant neoplasm of breast Screening for malignant neoplasm of cervix Screening for malignant neoplasm of the cervix H/O gastric bypass Morbid obesity with BMI of 40.0-44.9, adult ([facility]) Weight gain Other symptoms concerning nutrition, metabolism, and development Screening for lipid disorders Mild depression ([facility]) Depressive disorder, not elsewhere classified documented in this encounter [facility] Evaluation note Note Date & Type Note Facility Evaluation note Diagnosis Well woman exam with routine gynecological exam Routine gynecological examination Breast cancer screening by mammogram documented in this encounter [facility] History of Present illness Narrative Dora Greene NP - 02/08/2025 11:00 AM EDT Note Date & Type Note Facility History of Present illness Narrative Reason for Appointment: Patient ID: Nessa Leal is a 39 y.o. female who presents for Well Women Visit Patient presents today for Annual Exam. MEDICATIONS No current outpatient medications ALLERGIES No Known Allergies PROBLEMS Active Ambulatory Problems Diagnosis Date Noted Cardiac arrhythmia 02/07/2009 H/O gastric bypass 01/24/2016 Obstructive sleep apnea syndrome 02/07/2009 Morbid obesity with BMI of 40.0-44.9, adult ([facility]) 12/21/2024 Mild depression ([facility]) 12/21/2024 Resolved Ambulatory Problems Diagnosis Date Noted BMI 39.0-39.9,adult 01/24/2016 Past Medical History: Diagnosis Date Obesity ALEYDA (obstructive sleep apnea) HISTORY PAST MEDICAL HISTORY SOCIAL HISTORY Past Medical History: Diagnosis Date Obesity ALEYDA (obstructive sleep apnea) Social History Tobacco Use Smoking status: Former Types: Cigarettes Smokeless tobacco: Never Vaping Use Vaping status: Never Used Substance Use Topics Alcohol use: Yes Drug use: Never FAMILY HISTORY Family History Problem Relation Name Age of Onset Heart murmur Mother Thyroid disease Mother SURGICAL HISTORY Past Surgical History: Procedure Laterality Date CHOLECYSTECTOMY GASTRIC BYPASS 2004, Gastric Sleeve WISDOM TOOTH EXTRACTION REVIEW OF SYSTEMS Review of Systems: Review of Systems Constitutional: Negative. HENT: Negative. Eyes: Negative. Respiratory: Negative. Cardiovascular: Negative. Gastrointestinal: Negative. Genitourinary: Negative. Musculoskeletal: Negative. Skin: Negative. Neurological: Negative. All other systems reviewed and are negative. Hematological: Negative. Endocrine: Negative. Allergic/Immunologic: Negative. OBJECTIVE Objective: Physical Exam Constitutional: Appearance: Normal appearance. She is well-developed. Genitourinary: Vulva normal. Breasts: Breasts are soft. Right: Normal. Left: Normal. Cardiovascular: Rate and Rhythm: Normal rate and regular rhythm. Pulmonary: Effort: Pulmonary effort is normal. Breath sounds: Normal breath sounds. Abdominal: General: Bowel sounds are normal. There is no distension. Palpations: Abdomen is soft. Tenderness: There is no abdominal tenderness. There is no guarding or rebound. Musculoskeletal: General: No swelling. Normal range of motion. Right lower leg: No edema. Left lower leg: No edema. Neurological: Mental Status: She is alert and oriented to person, place, and time. Skin: General: Skin is warm and dry. Psychiatric: Mood and Affect: Mood normal. Behavior: Behavior normal. Vitals and nursing note reviewed. Exam conducted with a electro mechanical technician present. Vitals: Estimated body mass index is 43.79 kg/m as calculated from the following: Height as of 12/21/24: 5' 8 . Weight as of this encounter: 288 lb. BP: 120/70 Patient's last menstrual period was 01/25/2025. ASSESSMENT & PLAN ICD-10-CM 1. Well woman exam with routine gynecological exam Z01.419 THIN PREP TIS PAP AND HR HPV DNA POCT , urine manually resulted POCT urinalysis dipstick manually resulted 2. Breast cancer screening by mammogram Z12.31 Bilateral screening mammogram Bilateral screening mammogram Annual Exam: Patient presents today for an annual exam. Patient states she is doing well and has no complaints. Pap was obtained without difficulty. Orders Placed This Encounter Procedures Bilateral screening mammogram POCT , urine manually resulted POCT urinalysis dipstick manually resulted Follow Up: Patient is to return in one year for annual unless needed otherwise. Documented by Dora Greene NP on behalf of: SUSANNE Tavera documented in this encounter [facility] Summary Purpose Family History No Family History Records FoundNo Family History Records FoundNo Family History Records FoundNo Family History Records FoundNo Family History Records Found Advance Directives No Advanced Directives Records FoundNo Advanced Directives Records FoundNo Advanced Directives Records FoundNo Advanced Directives Records FoundNo Advanced Directives Records Found Additional Source Comments INFORMATION SOURCE (unrecogn ized section and content) DATE CREATED AUTHOR 04/27/2018 [facility] DATE CREATED AUTHOR AUTHOR'S ORGANIZ ATION 05/20/2018 [facility] DATE CREATED AUTHOR AUTHOR'S ORGANIZ ATION 11/06/2020 [facility] DATE CREATED AUTHOR AUTHOR'S ORGANIZ ATION 12/24/2024 [facility] DATE CREATED AUTHOR AUTHOR'S ORGANIZ ATION 02/11/[address] [facility] Care Teams (unrecognized sec tion and content) Massage Operator Relationship Specialty Start Date End Date Petar Tejada MD [address] [place] [address] PCP - General Internal Medicine 03/17/23 Massage Operator Relationship Specialty Start Date End Date Petar Tejada MD [address] [place] [address] PCP - General Internal Medicine 03/17/23 Massage Operator Relationship Specialty Start Date End Date Petar Tejada MD [address] [place] [address] PCP - General Internal Medicine 03/17/23 Massage Operator Relationship Specialty Start Date End Date Petar Tejada MD [address] [place] [address] PCP - General Internal Medicine 03/17/23 Massage Operator Relationship Specialty Start Date End Date Petar Tejada MD [address] [place] [address] PCP - General Internal Medicine 03/17/23 Reason for Visit (unrecogniz ed section and content) Reason Comments Well Women Visit FOR RECORDS PERTAINING TO PATIENTS WHO ARE OR HAVE BEEN ENROLLED IN A CHEMICAL DEPENDENCY/SUBSTANCEABUSE PROGRAM, SOME INFORMATION MAY BE OMITTED. This clinical summary was aggregated from multiple sources. Caution should be exercised in using it in the provision of clinical care. This summary normalizes information from multiple sources, and as a consequence, information in this document may materially change the coding, format and clinical context of patient data. In addition, data may be omitted in some cases. CLINICAL DECISIONS SHOULD BE BASED ON THE PRIMARY CLINICAL RECORDS. [employer] [facility]. provides no warranty or guarantee of the accuracy or completeness of information in this document.
== END 2025-02-21 09:01 | disposition home or self-care (01) ==
LOC: MAMMO 09:04
PROVIDERS: PCP Internal Medicine; Visit Provider Physician Assistant
DX: Z12.31 Encounter for screening mammogram for malignant neoplasm of breast (principal)
CPT/HCPCS: 77063; 77067